=== PATIENT | female | born 1990 | race Hispanic/Latino ===

== ENCOUNTER 2018-01-26 15:08 | Observation (INO) | payer MEDICAID, OTHER ==
[~2018-01-26] VITALS: Ht 149.9 cm; Wt 58.3 kg
[2018-01-26] MEDS ORDERED: IPRATROPIUM/ALBUTEROL SULFATE 3 ML SOLUTION IH ONE ×2 (15:22→15:31)
[2018-01-26] MEDS ORDERED: ACETAMINOPHEN 325 MG TAB ONE (15:32)
[2018-01-26] MEDS ORDERED: METHYLPREDNISOLONE SOD SUCC 125MG/2ML VIAL ONE (15:32)
[2018-01-26] MEDS ORDERED: SODIUM CHLORIDE 0.9% 1000ML 1,000 ML IV ONE (15:32)
[2018-01-26 15:38] LABS: BASOPHILS % (AUTO) 0.2 % (0.0-5.0); EOSINOPHILS % (AUTO) 0.9 % (0.0-8.0); HEMATOCRIT 41.7 % (36-48); LYMPHOCYTES % (AUTO) 6.6 % (21.0-51.0); MEAN CORPUSCULAR VOLUME 91.4 fL (79-99); MONOCYTES % (AUTO) 5.9 % (3.0-13.0); NEUTROPHILS % (AUTO) 86.4 % (40.0-77.0); PLATELET COUNT (AUTO) 271 K/uL (130-400); RED BLOOD CELL COUNT(AUTO) 4.56 MIL/uL (4.00-5.50); RED CELL DISTRIBUTION WIDTH 13.5 % (11.0-15.5); WHITE BLOOD COUNT (AUTO) 16.3 K/uL (4.8-10.8)
[2018-01-26 15:42] LABS: APPEARANCE,URINE Clear (CLEAR); BILIRUBIN,URINE Negative (NEGATIVE); COLOR,URINE Yellow (YELLOW); GLUCOSE, URINE (UA) Negative (NEGATIVE); KETONES,URINE Negative (NEGATIVE); LEUKOCYTE ESTERASE ,URINE Negative (NEGATIVE); NITRATE,URINE Negative (NEGATIVE); OCCULT BLOOD,URINE Moderate (NEGATIVE); PH,URINE 7.5 (5.0-8.0); PROTEIN,URINE Negative (NEGATIVE)
[2018-01-26 15:45] LABS: RAPID GROUP A STREP NEGATIVE (NEGATIVE)
[2018-01-26 15:50] LABS: CREATININE 0.5 mg/dL (0.5-1.5); POTASSIUM 3.6 mmol/L (3.5-5.1)
[2018-01-26 15:51] LABS: HCG,QUAL RESULT NEGATIVE (NEGATIVE)
[2018-01-26 15:54] LABS: ALBUMIN 4.1 g/dL (3.5-5.0); BILIRUBIN,DIRECT 0.2 mg/dL (0.0-0.3); BILIRUBIN,TOTAL 0.7 mg/dL (0.2-1.0); TOTAL PROTEIN, SERUM 8.5 g/dL (6.0-8.3)
[2018-01-26] MEDS ORDERED: SODIUM CHLORIDE 0.9% 1000ML 2,000 ML IV ONE (16:40)
[2018-01-26] MEDS ORDERED: AZITHROMYCIN 500MG+NS 250ML 250 ML IV ONE (16:40)
[2018-01-26] MEDS ORDERED: CEFTRIAXONE SODIUM 1 GM ONE (16:40)
[2018-01-26 17:03] LABS: BACTERIA,URINE Rare /HPF (None Seen); SQUAMOUS EPITHELIAL CELL,UR Few /LPF (0-2); WBC,URINE 0-1 /HPF (0-1)
[2018-01-26 20:15] VITALS: BP 111/66
[2018-01-26] MEDS ORDERED: ACETAMINOPHEN 325 MG TAB PO PRN (21:15)
[2018-01-26] MEDS ORDERED: ONDANSETRON HCL MDV 20ML 2 MG/ML VIAL IVP PRN (21:15)
[2018-01-26] MEDS: SODIUM CHLORIDE 0.9% 1000ML 1,000 ML IV SCH (21:47)
[2018-01-26] MEDS: METHYLPREDNISOLONE SOD SUCC 125MG/2ML VIAL IVP SCH (21:47)
[2018-01-27] VITALS: BP 113/69
[2018-01-27] MEDS: IPRATROPIUM/ALBUTEROL SULFATE 3 ML SOLUTION IH SCH ×3 (01:16→11:34)
[2018-01-27 04:00] VITALS: BP 109/65
[2018-01-27] MEDS: SODIUM CHLORIDE 0.9% 1000ML 1,000 ML IV SCH (04:34)
[2018-01-27 05:32] LABS: HEMATOCRIT 37.4 % (36-48); MEAN CORPUSCULAR HEMOGLOBIN 32.7 pg (27.0-33.0); MEAN CORPUSCULAR HGB CONC 35.1 g/dL (32.0-36.0); MEAN CORPUSCULAR VOLUME 93.1 fL (79-99); PLATELET COUNT (AUTO) 253 K/uL (130-400); RED BLOOD CELL COUNT(AUTO) 4.02 MIL/uL (4.00-5.50); RED CELL DISTRIBUTION WIDTH 13.4 % (11.0-15.5); WHITE BLOOD COUNT (AUTO) 9.9 K/uL (4.8-10.8)
[2018-01-27] MEDS: METHYLPREDNISOLONE SOD SUCC 125MG/2ML VIAL IVP SCH ×2 (06:20→15:09)
[2018-01-27 08:00] VITALS: BP 101/60
[2018-01-27] MEDS ORDERED: AZITHROMYCIN 500MG+NS 250ML 250 ML IV SCH (09:00)
[2018-01-27 12:00] VITALS: BP 117/73
[2018-01-27 16:00] VITALS: BP 115/72
[2018-01-27] MEDS ORDERED: CEFTRIAXONE SODIUM 1 GM IVP SCH (16:00)
== END 2018-01-27 16:50 | disposition home or self-care (01) ==
LOC: EDH 15:08 → EDHIP 15:09 → 4BH 20:30
PROVIDERS: ADMIT Internal Medicine; ATTEND Internal Medicine
DX: J18.9 Pneumonia, unspecified organism (principal); J45.901 Unspecified asthma with (acute) exacerbation
CPT/HCPCS: 36415 ×2; 71046; 80048; 80076; 81001; 81003; 81025; 83605; 85025; 85027; 86738; 87040 ×2; 87449; 87633; 87804 ×2; 87880; 94640 ×5; 94664; 96361 ×2; 96365; 96366; 96375 ×2; 96376; 99285; A4218; G0378 ×26; J0456 ×2; J0696 ×2; J2930 ×4; J7030 ×4

== ENCOUNTER 2021-05-28 12:09 | Emergency (ER) | payer OTHER ==
[~2021-05-28] VITALS: Ht 149.9 cm; Wt 59.0 kg
[2021-05-28 12:10] VITALS: BP 117/80
[2021-05-28 12:50] LABS: MEAN CORPUSCULAR HEMOGLOBIN 33.2 pg (27.0-33.0); MEAN CORPUSCULAR HGB CONC 35.7 g/dL (32.0-36.0); MEAN CORPUSCULAR VOLUME 92.9 fL (79-99); PLATELET COUNT (AUTO) 256 K/uL (130-400); RED BLOOD CELL COUNT(AUTO) 4.52 MIL/uL (4.00-5.50); RED CELL DISTRIBUTION WIDTH 12.1 % (11.0-15.5)
[2021-05-28] MEDS ORDERED: IPRATROPIUM/ALBUTEROL SULFATE 3 ML SOLUTION IH ONE (12:56)
[2021-05-28] MEDS ORDERED: SOLU-MEDROL 125MG VIAL IVP ONE (13:00)
[2021-05-28] MEDS ORDERED: IPRATROPIUM/ALBUTEROL SULFATE 3 ML SOLUTION IH PRN (13:00)
[2021-05-28 13:02] LABS: CREATININE 0.6 mg/dL (0.5-1.5); POTASSIUM 4.1 mmol/L (3.5-5.1)
[2021-05-28 13:07] LABS: ALBUMIN 4.1 g/dL (3.5-5.0); BILIRUBIN,TOTAL 0.5 mg/dL (0.2-1.0); TOTAL PROTEIN, SERUM 8.7 g/dL (6.0-8.3)
[2021-05-28 13:14] LABS: BASOPHILS % (MANUAL) 1 % (0-2); EOSINOPHILS % (MANUAL) 1 % (1-6); MAN.DIFF COMMENT-IMPRESSION MANUAL DIFFERENTIAL; MONOCYTES % (MANUAL) 3 % (2-9); PLATELET MORPHOLOGY COMMENT ADEQUATE; SEGMENTED NEUTROPHILS % 95 % (40-70)
[2021-05-28] MEDS ORDERED: MAGNESIUM 2GM PREMIX 50ML 50 ML IV SCH (15:30)
[2021-05-28] MEDS: 0.9%NACL 1000ML 1,000 ML IV SCH ×2 (16:00→16:23)
[2021-05-28] MEDS ORDERED: AUD IH (17:45)
[2021-05-28] MEDS ORDERED: ALBU90AE2 IH (17:45)
[2021-05-28] MEDS ORDERED: PRED20TA3 PO (17:45)
[2021-05-28 18:11] VITALS: BP 111/66
== END 2021-05-28 18:13 | disposition home or self-care (01) ==
LOC: EDH 12:09
DX: J45.901 Unspecified asthma with (acute) exacerbation (principal); Z20.822 Contact with and (suspected) exposure to COVID-19
CPT/HCPCS: 36415; 71045; 80053; 81025; 83605; 85025; 87040 ×2; 87635; 87804 ×2; 87880; 94640 ×2; 96365; 99284; C9803; J2930; J3475

== ENCOUNTER 2025-06-15 22:47 | Inpatient (IN) | payer SELFPAY ==
[~2025-06-15] VITALS: Ht 149.9 cm; Wt 57.5 kg
[~2025-06-15 22:47] MED LIST: ALBU90AE3 IH; AUD IH; PRED20TA3 PO
[2025-06-15 23:10] LABS: NUCLEATED RED BLOOD CELLS 0.0 % (0.0-0.19); PLATELET COUNT (AUTO) 299 K/uL (130-400); RED BLOOD CELL COUNT(AUTO) 4.76 MIL/uL (4.00-5.50); RED CELL DISTRIBUTION WIDTH 12.3 % (11.0-15.5); WHITE BLOOD COUNT (AUTO) 15.2 K/uL (4.8-10.8)
[2025-06-15 23:16] LABS: IMMATURE GRANULOCYTE ABSOLUTE 0.06 K/uL (0-1)
[2025-06-15] MEDS: BUDESONIDE 0.5 MG/2 ML INH IH ONE ×2 (23:16→23:35)
[2025-06-15 23:24] VITALS: PULSE 111; RESP 20; O2SAT 98
[2025-06-15 23:24] LABS: CREATININE 0.6 mg/dL (0.5-1.0); GLOMERULAR FILTR. RATE CALC 121.0 mL/min (>90); GLUCOSE,RANDOM 126.0 mg/dL (70-105); SODIUM SERUM 137.0 mmol/L (136-145); UREA NITROGEN, BLOOD 5.0 mg/dL (7-18)
[2025-06-15 23:29] LABS: ASPARTATE AMINOTRANSFERASE 23.0 U/L (10-37); TOTAL PROTEIN, SERUM 9.4 g/dL (6.0-8.3)
[2025-06-16] VITALS (14 sets, daily range): BP systolic 99–113; BP diastolic 51–69; PULSE 78–124; RESP 16–22; TEMP 97.6–98.1; O2SAT 95–99
[2025-06-16] LABS: CREATININE 0.7 mg/dL (0.5-1.0); GLOMERULAR FILTR. RATE CALC 117.0 mL/min (>90); GLUCOSE,RANDOM 134.0 mg/dL (70-105); SODIUM SERUM 136.0 mmol/L (136-145); UREA NITROGEN, BLOOD 5.0 mg/dL (7-18)
--- NOTE | 2025-06-16 00:21 | ERN ---
General Chief Complaint: Adult-Asthma Stated Complaint: FEVER, SOB, CHEST TIGHTNESS Time Seen by MD: 22:51 Source: patient History of Present Illness Initial Comments Patient is a 35-year-old female with a history of asthma. She often comes to the emergency room after she runs out of medications. She does not have a primary care physician. Today she comes in with wheezing and shortness of breath. Allergies: Coded Allergies: No Known Drug Allergies (Verified Allergy, 11/25/12) Home Meds Active Scripts Albuterol Sulfate (Albuterol Sulfate) 2.5 Mg/0.5 Ml Vial.neb, 2.5 MG IH TID for asthma for 30 Days, #120 INH Prov:PRAKASH AVILES NP 05/28/21 Prednisone (Prednisone) 20 Mg Tablet, 20 MG PO DAILY for asthma for 7 Days, #7 TAB Prov:PRAKASH AVILES NP 05/28/21 Albuterol Sulfate (Proair Digihaler) 90 Mcg Aer.pw.bas, 90 MCG IH TID for sob for 30 Days, #1 INH.KIT Prov:PRAKASH AVILES NP 05/28/21 Past Medical History Past Medical History: Asthma Past Surgical History: None, Female( History) LMP: Jun 15, 2025 Constitutional: (-) chills, (-) diaphoresis, (-) fever, (-) malaise, (-) weakness, (-) other documentation EENTM: (-) eye pain, (-) blurred vision, (-) tearing, (-) double vision, (-) ear pain, (-) ear discharge, (-) nose pain, (-) nose congestion, (-) throat pain, (-) Throat swelling, (-) mouth pain, (-) tooth pain, (-) mouth swelling, (-) other documentation Respiratory: (+) cough, (+) stridor, (+) wheezing Cardiovascular: (-) chest pain, (-) edema, (-) palpitations, (-) syncope, (-) dyspnea on exertion, (-) other documentation Gastrointestinal/Abdominal: (-) nausea, (-) vomiting, (-) diarrhea, (-) abdominal pain, (-) abdominal distention, (-) constipation, (-) rectal bleeding, (-) dark stool/melena, (-) other documentation Genitourinary: (-) vaginal discharge, (-) vaginal bleeding, (-) dysuria, (-) frequency, (-) hematuria, (-) pain, (-) other documentation Musculoskeletal: (-) Neck pain, (-) back pain, (-) Flank Pain, (-) joint pain, (-) joint swelling, (-) muscle pain, (-) muscle stiffness, (-) gout, (-) other documentation Physical Exam General Appearance: (+) mild distress Orientation: (+) alert, (+) oriented x 3 Head/Face Trauma: No Eye: bilateral eye normal inspection, bilateral eye PERRL, bilateral eye EOMI Ear, Nose, Throat: (+) hearing grossly normal, (+) normal ENT inspection, (+) moist mucous membraine, (+) normal pharynx Neck: (+) normal inspection, (+) supple, (+) full range of motion Respiratory: (+) chest non-tender, (+) decreased breath sounds, (+) abnormal breath sound, (+) rhonchi, (+) stridor, (+) wheezing Heart: (+) regular, (+) tachycardia Vascular: (+) no edema, (+) normal peripheral pulse Gastrointestinal: (+) soft, (+) non-tender, (+) bowel sound present Results Laboratory and Microbiology Lab and Micro Result Laboratory Tests Test 06/15/25 23:01 06/15/25 23:44 06/16/25 00:31 White Blood Count 15.2 K/uL (4.8-10.8) H Red Blood Count 4.76 MIL/uL (4.00-5.50) Hemoglobin 15.7 g/dL (12.0-16.0) Hematocrit 44.7 % (36-48) Mean Corpuscular Volume 93.9 fL (79-99) Mean Corpuscular Hemoglobin 33.0 pg (27.0-33.0) Mean Corpuscular Hemoglobin Concent 35.1 g/dL (32.0-36.0) Red Cell Distribution Width 12.3 % (11.0-15.5) Platelet Count 299 K/uL (130-400) Mean Platelet Volume 10.3 fL (7.5-10.5) Immature Granulocyte % (Auto) 0.4 % (0-1) Neutrophils (%) (Auto) 89.5 % (40.0-77.0) H Lymphocytes (%) (Auto) 3.9 % (21.0-51.0) L Monocytes (%) (Auto) 4.2 % (3.0-13.0) Eosinophils (%) (Auto) 1.7 % (0.0-8.0) Basophils (%) (Auto) 0.3 % (0.0-5.0) Neutrophils # (Auto) 13.1 K/uL (1.8-7.7) H Lymphocytes # (Auto) 0.6 K/uL (1.0-4.8) L Monocytes # (Auto) 0.6 K/uL (0.1-1.0) Eosinophils # (Auto) 0.25 K/uL (0.00-0.70) Basophils # (Auto) 0.05 K/uL (0.00-0.20) Absolute Immature Granulocyte (auto 0.06 K/uL (0-1) Nucleated Red Blood Cells 0.0 % (0.0-0.19) White Cell Morphology Comment See comments Sodium Level 137 mmol/L (136-145) 136 mmol/L (136-145) Potassium Level 3.8 mmol/L (3.5-5.1) 3.7 mmol/L (3.5-5.1) Chloride Level 101 mmol/L (101-111) 102 mmol/L (101-111) Carbon Dioxide Level 25 mmol/L (21-32) 25 mmol/L (21-32) Blood Urea Nitrogen 5 mg/dL (7-18) L 5 mg/dL (7-18) L Creatinine 0.6 mg/dL (0.5-1.0) 0.7 mg/dL (0.5-1.0) Glomerular Filtration Rate Calc 121 mL/min (>90) 117 mL/min (>90) Random Glucose 126 mg/dL (70-105) H 134 mg/dL (70-105) H Total Calcium 9.0 mg/dL (8.5-10.1) 9.1 mg/dL (8.5-10.1) Total Bilirubin 0.7 mg/dL (0.2-1.0) Aspartate Amino Transf (AST/SGOT) 23 U/L (10-37) Alanine Aminotransferase (ALT/SGPT) 28 U/L (12-78) Alkaline Phosphatase 79 U/L (50-136) Total Protein 9.4 g/dL (6.0-8.3) H Albumin 4.5 g/dL (3.5-5.0) Urine Color YELLOW (YELLOW) Urine Appearance CLOUDY (CLEAR) H Urine pH 6.0 (5.0-8.0) Urine Specific [place] 1.026 (1.001-1.031) Urine Protein 30 mg/dL (NEGATIVE) H Urine Glucose (UA) NEGATIVE mg/dL (NEGATIVE) Urine Ketones 40 mg/dL (NEGATIVE) H Urine Occult Blood LARGE (NEGATIVE) H Urine Nitrate NEGATIVE (NEGATIVE) Urine Bilirubin NEGATIVE mg/dL (NEGATIVE) Urine Urobilinogen 3 mg/dL (0.2-1.0) H Urine Leukocyte Esterase 25 Jung/uL (NEGATIVE) H Urine RBC TNTC /HPF (0-1) H Urine WBC 26-50 /HPF (0-1) H Urine Squamous Epithelial Cells MANY /HPF (0-2) Urine Bacteria RARE /HPF (None Seen) Urine HCG, Qualitative NEGATIVE (NEGATIVE) MDM MDM: Differential diagnosis: Recurrent asthma, viral infection, pneumonia, allergies. Rationale: Tests considered and ordered secondary to shared decision making include: Previous outside records reviewed: Old ER visits. Risk of complication and/or morbidity or mortality of patient management: None Medications-Per medication reconciliation Need for hospitalization: Patient does meet criteria for hospitalization. Need for emergency major/minor surgery: No There are no social concerns with this patient. Prescription drug management Prescriptions will include symptomatic care Patient's prior external medical records from other ER visits were reviewed by me as indicated. Prior testing and results from previous visits were reviewed. Prior tests were taken into account with medical decision making and resource utilization, independent historian/historians were used to obtain complete medical history. I independently interpreted the test that were performed, results were reviewed by me and considered findings on radiology if ordered. Patient's asthma improved a little bit but she still had some wheezing especially on the right and so I have written for a 2nd round of DuoNeb therapy. Her urine is positive for mild esterase activity. She does have blood in her urine but she is having her menses. Her white blood cell count is 15 with a left shift. Chest x-ray is normal nasal swabs are pending for viral and strep. I have discussed the patient with the hospitalist service they will admit her. ED Course Orders Procedure Category Date Status Time Comprehensive LAB 06/15/25 Complete Metabolic Panel 23:03 Ipratropium/Albuterol PHA 06/15/25 Complete Neb (Duoneb) 23:30 Budesonide 0.5 Mg/2 PHA 06/16/25 In Process Ml Inh (Pulmicort 0. 06:00 Cbc With Differential LAB 06/15/25 Complete 23:01 Budesonide 0.5 Mg/2 PHA 06/15/25 Complete Ml Inh (Pulmicort 0. 23:14 Chest 1vw RAD 06/15/25 Taken 23:29 ,Urine Test LAB 06/15/25 Complete 23:29 Urinalysis Profile LAB 06/15/25 Complete 23:29 Basic Metabolic Panel LAB 06/15/25 Complete 23:29 Covid19 (Sars Antigen LAB 06/16/25 Logged Rapid) 00:21 Influenza Type A & B, LAB 06/16/25 Logged Rapid 00:21 Rapid (Group A Strep) LAB 06/16/25 Logged 00:21 Ipratropium/Albuterol PHA 06/16/25 Complete Neb (Duoneb) 01:00 Culture Urine ANDREAS 06/16/25 In Process 01:02 Current Medications Medications (Trade) Dose Ordered Sig/Lizet Route PRN Reason Start Time Stop Time Status Last Admin Dose Admin Albuterol (DUOneb) 1 UDVIAL ONCE ONCE IH 06/15/25 23:30 06/15/25 23:31 DC 06/15/25 23:15 Albuterol (DUOneb) 1 UDVIAL ONCE ONCE IH 06/16/25 01:00 06/16/25 01:01 DC Budesonide (Pulmicort 0.5 Mg/2ml) 0.5 mg BIDRESP ONCE IH 06/16/25 06:00 06/16/25 06:01 06/15/25 23:16 Budesonide (Pulmicort 0.5 Mg/2ml) 0.5 mg STK-MED ONCE IH 06/15/25 23:14 06/15/25 23:15 DC Vital Signs Date Time Temp Pulse Resp B/P (MAP) Pulse Ox O2 Delivery O2 Flow Rate FiO2 06/15/25 23:24 111 20 06/15/25 23:24 111 20 Nasal Cannula 2.0 06/15/25 23:16 98.8 117 26 122/75 98 Nasal Cannula* 2 06/15/25 22:49 99.7 116 26 116/80 92 Room Air DX & DISP Disposition: Inpatient Departure Impression: Primary Impression: Acute asthma exacerbation Condition: Stable Referrals: MARYANA LIVE (PCP) TARYN SOTO MD Jun 16, 2025 00:21
[2025-06-16 00:58] LABS: APPEARANCE,URINE CLOUDY (CLEAR); GLUCOSE, URINE (UA) NEGATIVE (NEGATIVE); LEUKOCYTE ESTERASE ,URINE 25 Leu/uL (NEGATIVE); NITRATE,URINE NEGATIVE (NEGATIVE); OCCULT BLOOD,URINE LARGE (NEGATIVE)
[2025-06-16 00:59] LABS: ADD UA MICROSCOPIC YES
[2025-06-16 01:00] LABS: HCG,QUALITATIVE URINE NEGATIVE (NEGATIVE)
[2025-06-16 01:02] LABS: SQUAMOUS EPITHELIAL CELL,UR MANY /HPF (0-2)
--- NOTE | 2025-06-16 01:09 | HP ---
History of Present Illness Reason for Visit: sob History of Present Illness Ms. Dubois Is a 35-year-old female that was seen and examined today on 06/16/2025. Patient is a good historian of personal health Patient reports that she came to the emergency department with a chief complaint of shortness of breath. Onset was last Monday. Duration is on and off. Character is described as, "like tightness and I can not catch my breath. "Symptoms are not alleviated with rescue inhaler, albuterol. Symptoms are aggravated with physical activity. Patient reports associated cough. She only uses a rescue inhaler because she currently does not have health insurance but it we will be starting next month. Today in the emergency department WBCs 15.2, left shift neutrophils 89.5%, urinalysis positive for leukocyte esterase and WBCs 20 6-50 per high-powered microscopy field. Emergency room physician recommended that patient be admitted with a diagnosis of asthma exacerbation. Past Medical History Patient History: Cancer MOTHER, Onset:40's - 50 (BREAST CANCER) Carcinomas MOTHER Diabetes mellitus FATHER Family history: Diabetes mellitus FATHER, Onset:30's - 40 No Family History of: Alzheimer's disease Asthma Cardiovascular disease Chronic obstructive lung disease Chronic obstructive pulmonary disease Completed stroke Family history: Alzheimer's disease Family history: Asthma Family history: Cardiovascular disease Family history: Hypertension Hypertension Immunocompromised state Parkinson's disease Stroke Sudden Sudden ADDITIONAL PAST MEDICAL HISTORY: [Asthma] SOCIAL HISTORY: [Negative for smoking. Patient drinks alcohol once a week usually 3-4 beers that are 12 oz each. Patient denies drug use. Patient lives with the , Aaron Bolanos. Patient typically independent of all her ADLs. Patient denies difficulty paying her bills.] SURGICAL HISTORY: [ x1] Review of Systems General: No Fever, No Chills, No Night Sweats, No Fatigue, No Malaise, No Appetite, No Other HEENT: No Head Aches, No Visual Changes, No Eye Pain, No Ear Pain, No Dysphasia, No Sinus Congestion, No Post Nasal Drip, No Sore Throat, No Other Pulmonary: Dyspnea, Cough; No Pleuritic Chest Pain, No Other Cardiovascular: No: Chest Pain, Palpitations, Orthopnea, Paroxysmal Noc. Dyspnea, Edema, Lt Headedness, Other Gastrointestinal: No: Nausea, Vomiting, Abdominal Pain, Diarrhea, Constipation, Melena, Hematochezia, Other Genitourinary: No Dysuria, No Frequency, No Incontinence, No Hematuria, No Retention, No Other Musculoskeletal: No: other, neck pain, shoulder pain, arm pain, back pain, hand pain, leg pain, foot pain Skin: No Urticaria, No Rash, No Other Neurological: No: Weakness, Numbness, Incoordination, Change in speech, Confusion, Seizures, Other Allergies: Coded Allergies: No Known Drug Allergies (Verified Allergy, 11/25/12) Scheduled Albuterol Sulfate (Proair Digihaler), 90 MCG IH TID Albuterol Sulfate (Albuterol Sulfate), 2.5 MG IH TID Prednisone (Prednisone), 20 MG PO DAILY Exam Vital Signs Vital Signs Date Time Temp Pulse Resp B/P (MAP) Pulse Ox O2 Delivery O2 Flow Rate FiO2 06/16/25 01:08 98.8 112 26 115/70 98 Nasal Cannula* 2 28 General Appearance: Alert, Oriented X3, Cooperative, mild distress HEENT: Atraumatic, EOMI, Mucous membr. moist/pink Respiratory: Other (Positive bilateral wheezing) Cardiovascular: Regular rate, Regular rhythm, Normal S1, Normal S2 Abdominal: Normal bowel sounds, Soft, No tenderness Extremities: No edema Skin: No significant lesion Neuro: Normal speech, Strength at 5/5 X4 ext, Sensation intact, Cranial nerves 3-12 NL Psych/Mental Status: Mental status NL, Mood NL, Thoughts/Content NL Assessment/Plan ASSESSMENT: [ Asthma exacerbation, POA Leukocytosis, POA Urinary tract infection, POA] PLAN: [ Admit patient to medical floor as inpatient status. Place patient on telemetry monitoring. Asthma exacerbation: Reviewed patient's chest x-ray which was unremarkable. DuoNebs every 6 hours. Solu-Medrol 125 mg IV times 1. Solu-Medrol 40 mg IV every 8 hours. Consider discharging patient on prednisone packed. Leukocytosis, urinary tract infection: Start empiric antibiotic therapy with Rocephin. Check urine culture, follow up with the results. Check blood culture, follow up with the results. Check procalcitonin, follow up with the results. Check lactic acid, follow up with the results. GI prophylaxis, famotidine DVT prophylaxis, Lovenox ADVANCED CARE PLANNING 1. Which of the following were discussed? Hospice Care - Yes Therapeutic options - yes Advance Directives - Yes - patient states she does not have any advance directives in place at this time, however her , Aaron can make decisions for her if she becomes unable. Other discussions - patient wishes to remain a full code at this time 2. Discussed with who? Patient 3. Voluntary nature of this service was explained to the patient? Yes 4. Amount of time spent - ___16 minutes____ 5. Reviewed by Physician? (if this service was performed by NPP) Yes This document was generated in part using voice recognition software, occasional wrong word or sound alike substitutions may have occurred due to the inherent limitations of voice recognition software. Read the chart carefully and recognize using context, where the substitutions have occurred. Although every effort was made to edit the content, jigsawyer and typing errors may occur ATTESTATION BY PHYSICIAN I have seen and examined the patient. I reviewed the documentation, medical decision making, and treatment plan as noted by the mid-level provider above. I agree with the findings and plan of care.] LULA AMBRIZ [facility] Jun 16, 2025 01:09
--- NOTE | 2025-06-16 02:03 | HMCIMG ---
EXAM: CR Chest, 1 view CLINICAL HISTORY: Shortness of breath. COMPARISON: Chest radiograph dated 01/26/2018. FINDINGS: The lungs show no infiltrates or other acute findings. No pleural effusion or pneumothorax. The cardiomediastinal silhouette is within normal limits. No acute osseous abnormality. IMPRESSION: No acute cardiopulmonary process is evident. No interval changes. /Rex
[2025-06-16 02:11] LABS: RAPID GROUP A STREP negative (NEGATIVE)
[2025-06-16 02:21] LABS: COVID19 (SARS ANTIGEN RAPID) PRESUMPTIVE NEGATIVE (NEGATIVE); INFLUENZA TYPE A Negative For Type A (NEGATIVE); INFLUENZA TYPE B Negative For Type B (NEGATIVE)
[2025-06-16 04:19] LABS: IMMATURE GRANULOCYTE ABSOLUTE 0.06 K/uL (0-1); NUCLEATED RED BLOOD CELLS 0.0 % (0.0-0.19); PLATELET COUNT (AUTO) 337 K/uL (130-400); RED BLOOD CELL COUNT(AUTO) 4.49 MIL/uL (4.00-5.50); RED CELL DISTRIBUTION WIDTH 12.4 % (11.0-15.5); WHITE BLOOD COUNT (AUTO) 15.8 K/uL (4.8-10.8)
[2025-06-16 04:38] LABS: CREATININE 0.8 mg/dL (0.5-1.0); GLOMERULAR FILTR. RATE CALC 100.0 mL/min (>90); GLUCOSE,RANDOM 152.0 mg/dL (70-105); PHOSPHORUS 3.4 mg/dL (2.5-4.9); SODIUM SERUM 137.0 mmol/L (136-145); UREA NITROGEN, BLOOD 5.0 mg/dL (7-18)
[2025-06-16] MEDS: LACTATED RINGERS IV ONE (06:17)
[2025-06-16] MEDS ORDERED: ZOSYN 3.375GM +NS 50ML IVPB SCH (06:30)
[2025-06-16] MEDS ORDERED: 0.9%NACL 50ML IV SCH (09:00)
[2025-06-16] MEDS: FAMOTIDINE 20MG TAB PO SCH (09:26)
[2025-06-16] MEDS: ZOSYN 3.375GM +NS 50ML IVPB SCH (09:26)
[2025-06-16] MEDS: Solu-medROL 40MG VIAL IVP SCH (09:26)
[2025-06-16] MEDS: ENOXAPARIN SODIUM 40 MG/0.4 ML SYRINGE SQ SCH (09:26)
--- NOTE | 2025-06-16 10:12 | NUR ---
DCP: HOME Sw met with pt who lives in an apt with her 3 kids. Pt has no govt assistance, works a ACT,drives, able to complete ADLS, home management and meal prep for herself and family. Uses no in home care services, DME, HH or HD. Has no PCP. Community resources given Pt denies dc needs and will return home.. Sister Mckayla Dubois [phone] Aaron Gordon [phone] Addendum: 06/16/25 at 1017 by DUNIA GANN SS Amended: Links added.
--- NOTE | 2025-06-16 12:42 | PN ---
[facility] PROGRESS NOTE Date of Service: Jun 16, 2025 Time of Service: 12:41 SUBJECTIVE: Ms. Dubois is a 35-year-old female who came to the emergency department with a chief complaint of shortness of breath. She has associated cough both of which started from last Monday and got exacerbated yesterday night for which she came to the ER. Patient has had previous episodes of asthma exacerbation with hospital admission. She only uses albuterol when she has asthma exacerbation which she said did not help this time. Patient does not have a PCP currently. Patient's lab showed WBC of 15.2, left shift neutrophils 89.5%, urinalysis positive for leukocyte esterase and urine WBCs in the range of 26-50. She was started on Zosyn. Chest x-ray showed no acute cardiopulmonary process. She was also tachycardic with her heart rate in 116. 06/16/25: Patient was evaluated in her room without family present. She was placed on oxygen on 3 L nasal cannula, her pulse has improved and is now in the 80's range. She has become a bit hypotensive with a blood pressure rate at 99/61 so we started her on fluids. She is not short of breath but has a bit of chest tightness still. Her WBC has increased from 15.2-15.8 She also has increased lactic acid at 2.6. Patient's serology came back negative for influenza, COVID and group A strep rapid. A urine culture has been ordered pending results. Patient started on DuoNeb and Pulmicort. Zosyn has been discontinued and she has been placed on Rocephin and doxycycline. A test for peak flow has also been ordered. We will continue the current therapy to see if there is any improvement. REVIEW OF SYSTEMS CONSTITUTIONAL: Chills, denies fevers or night sweats. No unintentional weight loss reported. NEUROLOGICAL: Denies headache, amaurosis fugax, motor weakness, sensory deficit, vertigo/spinning sensation, gait abnormalities, or tremors. ENT: No hearing loss, rhinitis, rhinorrhea, hoarseness, or sore throat. CARDIOVASCULAR: Denies any exertional angina, dyspnea on exertion, orthopnea, paroxysmal nocturnal dyspnea, palpitations. PULMONARY: Shortness of breath, cough, denies phlegm/sputum, hemoptysis, pleuritic chest pain. GASTROINTESTINAL: Denies any type of dysphagia to either liquids or solids. Denies nausea, vomiting, abdominal pain, diarrhea, constipation, or changes in stool consistency or caliber. GENITOURINARY: Denies frequency, urgency, nocturia, hematuria or incontinence ENDOCRINOLOGIC: Denies polyuria, polydipsia, polyphagia or heat/cold intolerances. DERMATOLOGIC: Denies rashes or pruritus. PHYSICAL EXAM GENERAL APPEARANCE: The patient is awake, alert, and oriented, in no acute cardiopulmonary distress. NEUROLOGICAL: Motor is 5/5 in bilateral upper and lower extremities proximal to distal. No sensory deficits. HEENT: Face is symmetric. Pupils are equal and reactive. Extraocular movements are intact. NECK: Supple. No JVD. No lymphadenopathy. CHEST: Normal chest expansion. No Telemetry. LUNGS: Wheezing. Absence of any rales, rhonchi CARDIOVASCULAR: Regular. S1 and S2 normal. No appreciable rubs, murmurs or gallops. ABDOMEN: Soft, nontender, and nondistended. There is no rebound, voluntary guarding, or rigidity. : Deferred. No Gutiérrez. EXTREMITIES: Non-edematous and not cyanotic. No clubbing. Good capillary refill. SKIN: No skin breakdown. Vital Signs (last 8hr) Date Time Temp Pulse Resp B/P (MAP) Pulse Ox O2 Delivery O2 Flow Rate FiO2 06/16/25 11:12 97.5 85 20 99/61 97 Nasal Cannula 2.0 06/16/25 10:56 86 20 06/16/25 10:55 86 18 N/Cannula Low lpm 2.0 06/16/25 09:26 99 Nasal Cannula* 2 06/16/25 08:35 97.7 85 16 107/69 99 Nasal Cannula 2.0 06/16/25 06:41 78 20 06/16/25 06:40 87 18 N/Cannula Low lpm 3.0 32 LABS: Laboratory: Test 06/16/25 03:52 06/16/25 01:43 06/16/25 00:31 06/15/25 23:01 Range/Units White Blood Count 15.8 H 4.8-10.8 K/uL Red Blood Count 4.49 4.00-5.50 MIL/uL Hemoglobin 15.0 12.0-16.0 g/dL Hematocrit 41.9 36-48 % Mean Corpuscular Volume 93.3 79-99 fL Mean Corpuscular Hemoglobin 33.4 H 27.0-33.0 pg Mean Corpuscular Hemoglobin Concent 35.8 32.0-36.0 g/dL Red Cell Distribution Width 12.4 11.0-15.5 % Platelet Count 337 130-400 K/uL Mean Platelet Volume 10.7 H 7.5-10.5 fL Immature Granulocyte % (Auto) 0.4 0-1 % Neutrophils (%) (Auto) 93.5 H 40.0-77.0 % Lymphocytes (%) (Auto) 3.3 L 21.0-51.0 % Monocytes (%) (Auto) 2.3 L 3.0-13.0 % Eosinophils (%) (Auto) 0.3 0.0-8.0 % Basophils (%) (Auto) 0.2 0.0-5.0 % Neutrophils # (Auto) 14.8 H 1.8-7.7 K/uL Lymphocytes # (Auto) 0.5 L 1.0-4.8 K/uL Monocytes # (Auto) 0.4 0.1-1.0 K/uL Eosinophils # (Auto) 0.05 0.00-0.70 K/uL Basophils # (Auto) 0.03 0.00-0.20 K/uL Absolute Immature Granulocyte (auto 0.06 0-1 K/uL Nucleated Red Blood Cells 0.0 0.0-0.19 % Sodium Level 137 136-145 mmol/L Potassium Level 3.9 3.5-5.1 mmol/L Chloride Level 101 101-111 mmol/L Carbon Dioxide Level 24 21-32 mmol/L Blood Urea Nitrogen 5 L 7-18 mg/dL Creatinine 0.8 0.5-1.0 mg/dL Glomerular Filtration Rate Calc 100 >90 mL/min Random Glucose 152 H 70-105 mg/dL Lactic Acid Level 2.6 H 0.8-2.5 mmol/L Total Calcium 9.3 8.5-10.1 mg/dL Phosphorus Level 3.4 2.5-4.9 mg/dL Magnesium Level 1.80 1.80-2.40 mg/dL C-Reactive Protein, Quantitative 56.30 H 0.5-3.0 mg/L Procalcitonin < 0.05 L 0.05-0.5 ng/mL Influenza Type A Antigen Negative For Type A NEGATIVE Influenza Type B Antigen Negative For Type B NEGATIVE SARS-CoV-2 Antigen (Rapid) PRESUMPTIVE NEGATIVE NEGATIVE Group A Streptococcus Rapid negative NEGATIVE Urine Color YELLOW YELLOW Urine Appearance CLOUDY H CLEAR Urine pH 6.0 5.0-8.0 Urine Specific [place] 1.026 1.001-1.031 Urine Protein 30 H NEGATIVE mg/dL Urine Glucose (UA) NEGATIVE NEGATIVE mg/dL Urine Ketones 40 H NEGATIVE mg/dL Urine Occult Blood LARGE H NEGATIVE Urine Nitrate NEGATIVE NEGATIVE Urine Bilirubin NEGATIVE NEGATIVE mg/dL Urine Urobilinogen 3 H 0.2-1.0 mg/dL Urine Leukocyte Esterase 25 H NEGATIVE Jung/uL Urine RBC TNTC H 0-1 /HPF Urine WBC 26-50 H 0-1 /HPF Urine Squamous Epithelial Cells MANY 0-2 /HPF Urine Bacteria RARE None Seen /HPF Urine HCG, Qualitative NEGATIVE NEGATIVE White Cell Morphology Comment See comments Total Bilirubin 0.7 0.2-1.0 mg/dL Aspartate Amino Transf (AST/SGOT) 23 10-37 U/L Alanine Aminotransferase (ALT/SGPT) 28 12-78 U/L Alkaline Phosphatase 79 50-136 U/L Total Protein 9.4 H 6.0-8.3 g/dL Albumin 4.5 3.5-5.0 g/dL Current Medications Medications (Trade) Dose Ordered Sig/Lizet Route PRN Reason Start Time Stop Time Status Last Admin Dose Admin Acetaminophen (TYLenol 325MG TAB) 650 mg Q6H PRN PO TEMPERATURE GREATER THAN 101.5 06/16/25 01:30 07/16/25 01:29 Albuterol (DUOneb) 1 UDVIAL [id number] IH 06/16/25 06:00 07/16/25 05:59 06/16/25 10:55 1 UDVIAL Ceftriaxone Sodium (ROCEphine 1G INJ) 1 gm Q24H IVPB 06/16/25 01:30 06/16/25 06:05 DC 06/16/25 01:39 1 GM Enoxaparin Sodium (Lovenox) 40 mg DAILY SQ 06/16/25 09:00 07/16/25 08:59 06/16/25 09:26 40 MG Famotidine (Pepcid 20mg Tab) 20 mg DAILY PO 06/16/25 09:00 07/16/25 08:59 06/16/25 09:26 20 MG Guaifenesin (RobiTUSSin SUGAR-FREE 100 MG/ 5 ML UDCUP) 400 mg Q4H PRN PO cough 06/16/25 01:30 07/16/25 01:29 Hydralazine HCl (APRESOLine 20MG INJ) 10 mg Q6H PRN IV For:SBP above 160;DBP above 90 06/16/25 01:30 07/16/25 01:29 Methylprednisolone Sodium Succinate (Solu-medROL 40MG) 40 mg Q8H IVP 06/16/25 08:30 07/16/25 08:29 06/16/25 09:26 40 MG Morphine Sulfate (morPHINE 2MG SYG) 2 mg Q4H PRN IVP SEVERE PAIN (7-10) 06/16/25 01:30 06/23/25 01:29 Ondansetron HCl (zoFRAN 4MG INJ) 4 mg Q6H PRN IV NAUSEA/VOMITING 06/16/25 01:30 07/16/25 01:29 Piperacillin Sod/ Tazobactam Sod (Zosyn 3.375gm+NS 50ml) 3.375 gm Q8H IVPB 06/16/25 06:30 06/16/25 07:16 DC Piperacillin Sod/ Tazobactam Sod (Zosyn 3.375gm+NS 50ml) 3.375 gm Q8H IVPB 06/16/25 08:30 06/26/25 08:29 06/16/25 09:26 3.375 GM Sodium Chloride (NS 50ml) 50 ml AD IV 06/16/25 09:00 06/16/25 06:06 DC DIAGNOSTICS / RADIOLOGY: [ ] ASSESSMENT: Asthma exacerbation, POA Leukocytosis, POA Urinary tract infection, POA Possible community acquired pneumonia, POA PLAN: Asthma exacerbation, POA * And placenta with shortness of breath, tachycardia * Patient albuterol did not help * Patient started on DuoNeb and Pulmicort * Patient also on 3 L nasal Urinary tract infection, POA * Patient's urine positive for leukocyte esterase and WBC in the range of 25-60 * Urine culture ordered * Patient started on Rocephin and doxycycline Leukocytosis, POA * Presented with a WBC count of 15.2 Which has now increased to 15.8 * Underlying infection can be a cause or the use of steroids * Patient started on antibiotics while waiting for culture results Possible community acquired pneumonia, POA * Patient presents with presented with cough, chills * Patient's chest x-ray showed no acute abnormality * Patient started on Rocephin and doxycycline ATTESTATION BY PHYSICIAN I have seen and examined the patient. I reviewed the documentation, medical decision making, and treatment plan as noted by the resident provider above. I agree with the findings and plan of care. Fernando Wise MD, ABHINAV MD Jun 16, 2025 12:42
[2025-06-16] MEDS: DOXYCYCLINE 100MG+NS 250ML 250 ML IV SCH (14:06)
[2025-06-16] MEDS: 0.9%NACL 1000ML 1,000 ML IV SCH (18:49)
[2025-06-16] MEDS: BUDESONIDE 0.5 MG/2 ML INH IH SCH (18:52)
[2025-06-17] VITALS (13 sets, daily range): BP systolic 97–128; BP diastolic 60–84; PULSE 79–98; RESP 18–20; TEMP 97.6–98.1; O2SAT 95–100
[2025-06-17 04:58] LABS: IMMATURE GRANULOCYTE ABSOLUTE 0.10 K/uL (0-1); NUCLEATED RED BLOOD CELLS 0.0 % (0.0-0.19); PLATELET COUNT (AUTO) 292 K/uL (130-400); RED BLOOD CELL COUNT(AUTO) 4.15 MIL/uL (4.00-5.50); RED CELL DISTRIBUTION WIDTH 12.7 % (11.0-15.5); WHITE BLOOD COUNT (AUTO) 17.5 K/uL (4.8-10.8)
[2025-06-17 05:18] LABS: ASPARTATE AMINOTRANSFERASE 21.0 U/L (10-37); CREATININE 0.4 mg/dL (0.5-1.0); GLOMERULAR FILTR. RATE CALC 134.0 mL/min (>90); GLUCOSE,RANDOM 140.0 mg/dL (70-105); SODIUM SERUM 141.0 mmol/L (136-145); TOTAL PROTEIN, SERUM 7.4 g/dL (6.0-8.3); UREA NITROGEN, BLOOD 13.0 mg/dL (7-18)
[2025-06-17] MEDS ORDERED: BENZONATATE 100 MG CAPSULE PO PRN (13:00)
--- NOTE | 2025-06-17 14:33 | PN ---
[facility] PROGRESS NOTE Date of Service: Jun 17, 2025 Time of Service: 14:29 SUBJECTIVE: Ms. Dubois is a 35-year-old female who came to the emergency department with a chief complaint of shortness of breath. She has associated cough both of which started from last Monday and got exacerbated yesterday night for which she came to the ER. Patient has had previous episodes of asthma exacerbation with hospital admission. She only uses albuterol when she has asthma exacerbation which she said did not help this time. Patient does not have a PCP currently. Patient's lab showed WBC of 15.2, left shift neutrophils 89.5%, urinalysis positive for leukocyte esterase and urine WBCs in the range of 26-50. She was started on Zosyn. Chest x-ray showed no acute cardiopulmonary process. She was also tachycardic with her heart rate in 116. 06/16/25: Patient was evaluated in her room without family present. She was placed on oxygen on 3 L nasal cannula, her pulse has improved and is now in the 80's range. She has become a bit hypotensive with a blood pressure rate at 99/61 so we started her on fluids. She is not short of breath but has a bit of chest tightness still. Her WBC has increased from 15.2-15.8 She also has increased lactic acid at 2.6. Patient's serology came back negative for influenza, COVID and group A strep rapid. A urine culture has been ordered pending results. Patient started on DuoNeb and Pulmicort. Zosyn has been discontinued and she has been placed on Rocephin and doxycycline. A test for peak flow has also been ordered. We will continue the current therapy to see if there is any improvement. 06/17/25: Patient was evaluated in her room with family present. Patient is started on DuoNeb and Pulmicort. Patient started on normal saline which seems to have helped with her blood pressure. Today in the morning the blood pressure was 110/65. The patient has cough and shortness of breath when she walks a short distance. We tried to wean the patient off of nasal cannula but she still becomes short of breath so she is still on nasal cannula on 2L oxygen. The test for peak flow gave us a result of 150 mL. She said her chest tightness has improved but still has shortness of breath so we have consulted pulmonology for further recommendations. REVIEW OF SYSTEMS CONSTITUTIONAL: Chills, denies fevers or night sweats. No unintentional weight loss reported. NEUROLOGICAL: Denies headache, amaurosis fugax, motor weakness, sensory deficit, vertigo/spinning sensation, gait abnormalities, or tremors. ENT: No hearing loss, rhinitis, rhinorrhea, hoarseness, or sore throat. CARDIOVASCULAR: Denies any exertional angina, dyspnea on exertion, orthopnea, paroxysmal nocturnal dyspnea, palpitations. PULMONARY: Shortness of breath, cough, denies phlegm/sputum, hemoptysis, pleuritic chest pain. GASTROINTESTINAL: Denies any type of dysphagia to either liquids or solids. De nies nausea, vomiting, abdominal pain, diarrhea, constipation, or changes in stool consistency or caliber. GENITOURINARY: Denies frequency, urgency, nocturia, hematuria or incontinence ENDOCRINOLOGIC: Denies polyuria, polydipsia, polyphagia or heat/cold intolerances. DERMATOLOGIC: Denies rashes or pruritus. PHYSICAL EXAM GENERAL APPEARANCE: The patient is awake, alert, and oriented, in no acute cardiopulmonary distress. NEUROLOGICAL: Motor is 5/5 in bilateral upper and lower extremities proximal to distal. No sensory deficits. HEENT: Face is symmetric. Pupils are equal and reactive. Extraocular movements are intact. NECK: Supple. No JVD. No lymphadenopathy. CHEST: Normal chest expansion. No Telemetry. LUNGS: Wheezing. Absence of any rales, rhonchi CARDIOVASCULAR: Regular. S1 and S2 normal. No appreciable rubs, murmurs or gallops. ABDOMEN: Soft, nontender, and nondistended. There is no rebound, voluntary guarding, or rigidity. : Deferred. No Gutiérrez. EXTREMITIES: Non-edematous and not cyanotic. No clubbing. Good capillary refill. SKIN: No skin breakdown. Vital Signs (last 8hr) Date Time Temp Pulse Resp B/P (MAP) Pulse Ox O2 Delivery O2 Flow Rate FiO2 06/17/25 11:20 97.9 80 20 97/60 97 Nasal Cannula 2.0 06/17/25 11:01 90 20 06/17/25 08:48 95 Nasal Cannula* 2 28 06/17/25 08:20 98.1 95 18 110/65 95 Room Air 06/17/25 06:51 92 19 N/Cannula Low lpm 2.0 28 LABS: Laboratory: Test 06/17/25 04:46 06/16/25 03:52 06/16/25 01:43 06/16/25 00:31 Range/Units White Blood Count 17.5 H 4.8-10.8 K/uL Red Blood Count 4.15 4.00-5.50 MIL/uL Hemoglobin 13.9 12.0-16.0 g/dL Hematocrit 40.0 36-48 % Mean Corpuscular Volume 96.4 79-99 fL Mean Corpuscular Hemoglobin 33.5 H 27.0-33.0 pg Mean Corpuscular Hemoglobin Concent 34.8 32.0-36.0 g/dL Red Cell Distribution Width 12.7 11.0-15.5 % Platelet Count 292 130-400 K/uL Mean Platelet Volume 10.7 H 7.5-10.5 fL Immature Granulocyte % (Auto) 0.6 0-1 % Neutrophils (%) (Auto) 93.0 H 40.0-77.0 % Lymphocytes (%) (Auto) 4.0 L 21.0-51.0 % Monocytes (%) (Auto) 2.3 L 3.0-13.0 % Eosinophils (%) (Auto) 0.0 0.0-8.0 % Basophils (%) (Auto) 0.1 0.0-5.0 % Neutrophils # (Auto) 16.2 H 1.8-7.7 K/uL Lymphocytes # (Auto) 0.7 L 1.0-4.8 K/uL Monocytes # (Auto) 0.4 0.1-1.0 K/uL Eosinophils # (Auto) 0.00 0.00-0.70 K/uL Basophils # (Auto) 0.02 0.00-0.20 K/uL Absolute Immature Granulocyte (auto 0.10 0-1 K/uL Nucleated Red Blood Cells 0.0 0.0-0.19 % Sodium Level 141 136-145 mmol/L Potassium Level 4.2 3.5-5.1 mmol/L Chloride Level 108 101-111 mmol/L Carbon Dioxide Level 23 21-32 mmol/L Blood Urea Nitrogen 13 7-18 mg/dL Creatinine 0.4 L 0.5-1.0 mg/dL Glomerular Filtration Rate Calc 134 >90 mL/min Random Glucose 140 H 70-105 mg/dL Lactic Acid Level 1.1 0.8-2.5 mmol/L Total Calcium 8.5 8.5-10.1 mg/dL Magnesium Level 1.90 1.80-2.40 mg/dL Total Bilirubin 0.4 0.2-1.0 mg/dL Aspartate Amino Transf (AST/SGOT) 21 10-37 U/L Alanine Aminotransferase (ALT/SGPT) 25 12-78 U/L Alkaline Phosphatase 62 50-136 U/L C-Reactive Protein, Quantitative 60.90 H 0.5-3.0 mg/L Total Protein 7.4 6.0-8.3 g/dL Albumin 3.4 L 3.5-5.0 g/dL Phosphorus Level 3.4 2.5-4.9 mg/dL Procalcitonin < 0.05 L 0.05-0.5 ng/mL Influenza Type A Antigen Negative For Type A NEGATIVE Influenza Type B Antigen Negative For Type B NEGATIVE SARS-CoV-2 Antigen (Rapid) PRESUMPTIVE NEGATIVE NEGATIVE Group A Streptococcus Rapid negative NEGATIVE Urine Color YELLOW YELLOW Urine Appearance CLOUDY H CLEAR Urine pH 6.0 5.0-8.0 Urine Specific [place] 1.026 1.001-1.031 Urine Protein 30 H NEGATIVE mg/dL Urine Glucose (UA) NEGATIVE NEGATIVE mg/dL Urine Ketones 40 H NEGATIVE mg/dL Urine Occult Blood LARGE H NEGATIVE Urine Nitrate NEGATIVE NEGATIVE Urine Bilirubin NEGATIVE NEGATIVE mg/dL Urine Urobilinogen 3 H 0.2-1.0 mg/dL Urine Leukocyte Esterase 25 H NEGATIVE Jung/uL Urine RBC TNTC H 0-1 /HPF Urine WBC 26-50 H 0-1 /HPF Urine Squamous Epithelial Cells MANY 0-2 /HPF Urine Bacteria RARE None Seen /HPF Urine HCG, Qualitative NEGATIVE NEGATIVE Test 06/15/25 23:01 Range/Units White Cell Morphology Comment See comments Current Medications Medications (Trade) Dose Ordered Sig/Lizet Route PRN Reason Start Time Stop Time Status Last Admin Dose Admin Acetaminophen (TYLenol 325MG TAB) 650 mg Q6H PRN PO TEMPERATURE GREATER THAN 101.5 06/16/25 01:30 07/16/25 01:29 Albuterol (DUOneb) 1 UDVIAL [id number] IH 06/16/25 06:00 07/16/25 05:59 06/17/25 11:01 1 UDVIAL Albuterol (DUOneb) 1 UDVIAL [id number] IH 06/16/25 18:00 06/16/25 12:43 DC Benzonatate (Tessalon 100mg Caps) 100 mg Q8H PRN PO COUGH 06/17/25 13:00 07/17/25 12:59 Budesonide (Pulmicort 0.5 Mg/2ml) 0.5 mg BIDRESP IH 06/16/25 18:00 07/16/25 17:59 06/17/25 06:20 0.5 MG Ceftriaxone Sodium (ROCEphine 1G INJ) 1 gm Q24H IVPB 06/16/25 01:30 06/16/25 06:05 DC 06/16/25 01:39 1 GM Ceftriaxone Sodium (ROCEphine 1G INJ) 1 gm Q24H IVPB 06/16/25 13:00 06/26/25 12:59 06/17/25 13:47 1 GM Doxycycline Hyclate 250 ml @ 125 mls/hr Q12H IV 06/16/25 13:00 06/26/25 12:59 06/17/25 13:47 125 MLS/HR Enoxaparin Sodium (Lovenox) 40 mg DAILY SQ 06/16/25 09:00 07/16/25 08:59 06/17/25 08:49 40 MG Famotidine (Pepcid 20mg Tab) 20 mg DAILY PO 06/16/25 09:00 07/16/25 08:59 06/17/25 08:48 20 MG Guaifenesin (RobiTUSSin SUGAR-FREE 100 MG/ 5 ML UDCUP) 400 mg Q4H PRN PO cough 06/16/25 01:30 07/16/25 01:29 Hydralazine HCl (APRESOLine 20MG INJ) 10 mg Q6H PRN IV For:SBP above 160;DBP above 90 06/16/25 01:30 07/16/25 01:29 Methylprednisolone Sodium Succinate (Solu-medROL 40MG) 40 mg Q8H IVP 06/16/25 08:30 07/16/25 08:29 06/17/25 08:48 40 MG Methylprednisolone Sodium Succinate (Solu-medROL 125MG) 125 mg ONCE IVP 06/16/25 17:42 06/16/25 20:11 DC Morphine Sulfate (morPHINE 2MG SYG) 2 mg Q4H PRN IVP SEVERE PAIN (7-10) 06/16/25 01:30 06/23/25 01:29 Ondansetron HCl (zoFRAN 4MG INJ) 4 mg Q6H PRN IV NAUSEA/VOMITING 06/16/25 01:30 07/16/25 01:29 Piperacillin Sod/ Tazobactam Sod (Zosyn 3.375gm+NS 50ml) 3.375 gm Q8H IVPB 06/16/25 06:30 06/16/25 07:16 DC Piperacillin Sod/ Tazobactam Sod (Zosyn 3.375gm+NS 50ml) 3.375 gm Q8H IVPB 06/16/25 08:30 06/16/25 12:42 DC 06/16/25 09:26 3.375 GM Sodium Chloride 1,000 ml @ 75 mls/hr [id number] IV 06/16/25 14:30 07/16/25 14:29 06/16/25 18:49 75 MLS/HR Sodium Chloride (NS 50ml) 50 ml AD IV 06/16/25 09:00 06/16/25 06:06 DC DIAGNOSTICS / RADIOLOGY: [ ] ASSESSMENT: Asthma exacerbation, POA Acute Hypoxic Respiratory Failure, POA Leukocytosis, POA Urinary tract infection, POA Possible community acquired pneumonia, POA PLAN: Asthma exacerbation, POA * Patient presented with shortness of breath, tachycardia * Continue patient on DuoNeb and Pulmicort * Patient no one 2 L.Tried to wean off but patient became short of breath * Pulmonology consulted Urinary tract infection, POA * Patient's urine positive for leukocyte esterase and WBC in the range of 25-60 * Urine culture no growth in 24 hrs * Continue patient on Rocephin and doxycycline Possible community acquired pneumonia, POA * Patient presented with presented with cough, chills * Patient's chest x-ray showed no acute abnormality * Continue patient on Rocephin and doxycycline Acute Hypoxic Respiratory Failure, POA * Patient has SpO2 of 95 on 2L NC so the PaO2/FiO2 is 285 which is less than 300 * Patient shows work of breathing when not on Nasal cannula * Patient is improving as she was on 3L does but now she is on 2 L O2. * Pulmonology consulted ATTESTATION BY PHYSICIAN I have seen and examined the patient. I reviewed the documentation, medical decision making, and treatment plan as noted by the resident provider above. I agree with the findings and plan of care. Fernando Wise MD, ABHINAV MD Jun 17, 2025 14:33
[2025-06-17] MEDS ORDERED: MAGNESIUM 2GM PREMIX 50ML 50 ML IV PRN (15:00)
--- NOTE | 2025-06-17 15:45 | NUR ---
PROVIDER ORDERS SPOKE WITH ABDULLAHI CLIFFORD FROM [facility] REGARDING NEW PATIENT CONSULT. PER [employer] DELIVERY CONSULTANT, ORDER CHEST X-RAY AND ABG'S AND WILL CONSULT WITH PATIENT TOMORROW 06/18.
[2025-06-17 16:30] LABS: ABG BASE EXCESS -4.6 mmol/L (-2.0-3.0); ABG HCO3 19.6 mmol/L (21.0-28.0); ABG OXYGEN SATURATION 97.7 % (94.0-98.0); ABG PCO2 34 mmHg (32-45); ABG PH 7.380 (7.350-7.450); DEVICE COMMENT RR JACKIE, RN; PO2, ARTERIAL BG 103.9 mmHg (83.0-108.0); TEMPERATURE, CELSIUS BG 37.0 CELSIUS (35.5-37.0); VENT MODE, BG 2 L NC (ROOM AIR)
[2025-06-17] MEDS: Solu-medROL 40MG VIAL IVP SCH (20:02)
[2025-06-18] VITALS (10 sets, daily range): BP systolic 102–135; BP diastolic 60–88; PULSE 78–100; RESP 16–20; TEMP 97.8–98.3; O2SAT 92–99
[2025-06-18 04:15] LABS: NUCLEATED RED BLOOD CELLS 0.0 % (0.0-0.19); PLATELET COUNT (AUTO) 325.0 K/uL (130-400); RED BLOOD CELL COUNT(AUTO) 3.98 MIL/uL (4.00-5.50); RED CELL DISTRIBUTION WIDTH 13.0 % (11.0-15.5); WHITE BLOOD COUNT (AUTO) 13.4 K/uL (4.8-10.8)
[2025-06-18 04:22] LABS: CREATININE 0.6 mg/dL (0.5-1.0); GLOMERULAR FILTR. RATE CALC 121.0 mL/min (>90); GLUCOSE,RANDOM 161.0 mg/dL (70-105); SODIUM SERUM 141.0 mmol/L (136-145); UREA NITROGEN, BLOOD 9.0 mg/dL (7-18)
--- NOTE | 2025-06-18 06:55 | HMCIMG ---
EXAM: CR Chest, 1 view CLINICAL HISTORY: Asthma exacerbation. COMPARISON: Chest radiograph dated 06/15/2025. FINDINGS: Interval development of bilateral lower zone airspace disease. No pleural effusion or pneumothorax. The cardiomediastinal silhouette is within normal limits. No acute osseous abnormality. IMPRESSION: Interval development of bilateral lower zone airspace disease could be atelectasis or pneumonia. /Cache
--- NOTE | 2025-06-18 08:55 | NUR ---
PROVIDED PT WITH SPECIMEN CUP FOR SPUTUM COLLECTIONS. NO FURTHER QUESTIONS AT TIME TIME
[2025-06-18] MEDS: BENZONATATE 100 MG CAPSULE PO SCH (10:36)
[2025-06-18] MEDS: SODIUM CHLORIDE 3% FOR INHALATION 4 ML/AMP VIAL.NEB IH ONE ×2 (11:13→20:30)
--- NOTE | 2025-06-18 12:37 | CONS ---
[facility] CONSULTATION NOTE Date Patient Seen: Jun 18, 2025 Time of Visit: 12:23 Supervising Physician: [ ] Dr. Sofie Dubois Reason for Consultation: [ ] Acute on chronic asthma exacerbation Primary Care Physician: [ ] Outpatient Specialists: [ ] Inpatient Consults: [ ] HANS PROBLEM LIST: Acute on chronic asthma exacerbation Acute cystitis PLAN SUMMARY: Supplemental oxygen as needed Wean off as tolerated Obtain ABG Solu-Medrol 40 mg IV every8 hours Montelukast 10 mg daily Continue Rocephin Continue doxycycline Pulmicort b.i.d. Outpatient follow up in Pulmonary Clinic 1-2 weeks post discharge HPI: Ms. Dubois is a 35-year-old female who came to the emergency department with a chief complaint of shortness of breath. She has associated cough both of which started from last Monday and got exacerbated yesterday night for which she came to the ER. Patient has had previous episodes of asthma exacerbation with hospital admission. She only uses albuterol when she has asthma exacerbation which she said did not help this time. Patient does not have a PCP currently. Patient's lab showed WBC of 15.2, left shift neutrophils 89.5%, urinalysis positive for leukocyte esterase and urine WBCs in the range of 26-50. She was started on Zosyn. Chest x-ray showed no acute cardiopulmonary process. She was also tachycardic with her heart rate in 116. Patient continued with shortness on breath requiring 3 L nasal cannula and for this reason we are consulted. Patient is seen sitting up in bed currently on room air and denies dyspnea at rest. On exam noted patient continues with bilateral scattered wheezing. 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 Patient admits she is always around lots of people who smoke in her in her home and her family/friends [place]irie [place]. Patient admits she spends time at bars where there is a lot of smoke inhaled. Patient admits her symptoms began soon after her attending on gathering and was around multiple smokers. Patient was advised to maintain distance from people smoking tobacco as well as bars. Patient had peak flow results of 150 mL which is extremely low for person her age. Recommend continue duo nebs as well as Pulmicort b.i.d.. Continue current antibiotic regimen. Continue high-dose steroids for a short course until wheezing resolves. Request a 6 minute walk test prior to discharge. Patient was advised to follow up in Pulmonary Clinic in 1-2 weeks post discharge. Patient reports she currently does not have insurance and given her financial status is quite difficult to follow up with specialists. We will con mateo to follow with you during her hospitalization. ABG results were noted. Patient was found to needed CRP. We will continue steroids for now. PAST MEDICAL HX: see above PAST SURGICAL HX: noncontributory SOCIAL HISTORY: No tobacco, ETOH, or illicit drug use Coded Allergies: No Known Drug Allergies (Verified Allergy, 11/25/12) REVIEW OF SYSTEMS: 12 point ROS reviewed with patient. Pertinent positives mentioned above. Otherwise negative. PHYSICAL EXAM: GENERAL: alert, weak, awake oriented x 3 HEENT: EOMI, Sclera non icteric, moist mucosa NECK: Supple, no JVD, trachea midline LUNGS: Clear breath sounds bilaterally. No wheezes HEART: Regular rate and rhythm. Normal S1 and S2, without murmurs ABD: Abdomen soft, nontender. Bowel sounds present EXT: No clubbing cyanosis or edema NEURO: Alert and oriented to person, follows commands Vital Signs (last 8hr) Date Time Temp Pulse Resp B/P (MAP) Pulse Ox O2 Delivery O2 Flow Rate FiO2 06/18/25 11:13 78 18 06/18/25 08:00 97.9 83 16 102/70 92 Room Air 06/18/25 06:28 89 18 N/Cannula Low lpm 2.0 06/18/25 06:27 89 18 LABS: Hematology Labs: Test 06/18/25 03:28 06/17/25 04:46 Range/Units White Blood Count 13.4 H 4.8-10.8 K/uL Red Blood Count 3.98 L 4.00-5.50 MIL/uL Hemoglobin 13.7 12.0-16.0 g/dL Hematocrit 38.2 36-48 % Mean Corpuscular Volume 96.0 79-99 fL Mean Corpuscular Hemoglobin 34.4 H 27.0-33.0 pg Mean Corpuscular Hemoglobin Concent 35.9 32.0-36.0 g/dL Red Cell Distribution Width 13.0 11.0-15.5 % Platelet Count 325 130-400 K/uL Mean Platelet Volume 10.9 H 7.5-10.5 fL Nucleated Red Blood Cells 0.0 0.0-0.19 % Immature Granulocyte % (Auto) 0.6 0-1 % Neutrophils (%) (Auto) 93.0 H 40.0-77.0 % Lymphocytes (%) (Auto) 4.0 L 21.0-51.0 % Monocytes (%) (Auto) 2.3 L 3.0-13.0 % Eosinophils (%) (Auto) 0.0 0.0-8.0 % Basophils (%) (Auto) 0.1 0.0-5.0 % Neutrophils # (Auto) 16.2 H 1.8-7.7 K/uL Lymphocytes # (Auto) 0.7 L 1.0-4.8 K/uL Monocytes # (Auto) 0.4 0.1-1.0 K/uL Eosinophils # (Auto) 0.00 0.00-0.70 K/uL Basophils # (Auto) 0.02 0.00-0.20 K/uL Absolute Immature Granulocyte (auto 0.10 0-1 K/uL Chemistry Labs: Test 06/18/25 03:28 06/17/25 04:46 Range/Units Sodium Level 141 136-145 mmol/L Potassium Level 3.8 3.5-5.1 mmol/L Chloride Level 108 101-111 mmol/L Carbon Dioxide Level 23 21-32 mmol/L Blood Urea Nitrogen 9 7-18 mg/dL Creatinine 0.6 0.5-1.0 mg/dL Glomerular Filtration Rate Calc 121 >90 mL/min Random Glucose 161 H 70-105 mg/dL Total Calcium 8.2 L 8.5-10.1 mg/dL Lactic Acid Level 1.1 0.8-2.5 mmol/L Magnesium Level 1.90 1.80-2.40 mg/dL Total Bilirubin 0.4 0.2-1.0 mg/dL Aspartate Amino Transf (AST/SGOT) 21 10-37 U/L Alanine Aminotransferase (ALT/SGPT) 25 12-78 U/L Alkaline Phosphatase 62 50-136 U/L C-Reactive Protein, Quantitative 60.90 H 0.5-3.0 mg/L Total Protein 7.4 6.0-8.3 g/dL Albumin 3.4 L 3.5-5.0 g/dL DIAGNOSTICS / RADIOLOGY RESULTS: PATIENT: DIPIKA DUBOIS MR#: [id number] : 1990 SEX: F AGE: 35 LOCATION: [facility] ORDER [id number] STATUS: ADM IN REPORT#: [id number] SERVICE 1543 REASON: ASTHMA EXACERBATION ORDERING PHYSICIAN: ABDULLAHI CLIFFORD NP PROCEDURE: CXR1VW - CHEST 1VW EXAM: CR Chest, 1 view CLINICAL HISTORY: Asthma exacerbation. COMPARISON: Chest radiograph dated 06/15/2025. FINDINGS: Interval development of bilateral lower zone airspace disease. No pleural effusion or pneumothorax. The cardiomediastinal silhouette is within normal limits. No acute osseous abnormality. IMPRESSION: Interval development of bilateral lower zone airspace disease could be atelectasis or pneumonia. /[place] DICTATED BY: JOSÉ MIGUEL LA Jr., MD DATE: 06/18/25753 ELECTRONICALLY SIGNED BY: JOSÉ MIGUEL LA Jr., MD DATE: 06/18/25753 PLAN NEURO: Minimize central acting medications as possible. Maintain fall precautions, adequate lighting during the day PULMONARY: Supplemental 02 as needed. Maintain aspiration precautions at all times CARDIOVASCULAR: Follow hemodynamics. Vital signs per facility protocol GI & NUTRITION: Continue with nutritional support. Continue stool softeners and laxatives as needed. KIDNEYS & ELECTROLYTES: Strict monitoring of intake, output and overall fluid balance. Avoid nephrotoxic medications to the extent possible. Medications to be dosed according to renal function. Monitor electrolytes and replace as needed ENDOCRINE: Maintain blood glucose between 100-180 at all times. Hypoglycemia protocol in place INFECTIOUS DISEASE: Trend temperature, WBC and procalcitonin level Follow cultures, deescalate antibiotics as soon as possible. Panculture if new onset fever ONCOLOGY/HEMATOLOGY/COAGULATION: Monitor for s/s of bleeding Monitor hemoglobin, coagulation studies as needed SKIN: Pressure ulcer prevention per facility protocol Specialty mattress ORTHO/REHAB: Continue PT/OT Prophylaxis: Continue GI and DVT prophylaxis Code Status: Full Resuscitation Disposition: As per attending ATTESTATION BY PHYSICIAN The patient has been seen and evaluated, the case has been discussed with the OUTSIDE CUTTER, I agree with the clinical findings and plan of care. Vasyl Dubois MD, ECTOR N OUTSIDE CUTTER Jun 18, 2025 12:37
--- NOTE | 2025-06-18 16:30 | PN ---
[facility] PROGRESS NOTE Date of Service: Jun 18, 2025 Time of Service: 16:05 SUBJECTIVE: Ms. Dubois is a 35-year-old female who came to the emergency department with a chief complaint of shortness of breath. She has associated cough both of which started from last Monday and got exacerbated yesterday night for which she came to the ER. Patient has had previous episodes of asthma exacerbation with hospital admission. She only uses albuterol when she has asthma exacerbation which she said did not help this time. Patient does not have a PCP currently. Patient's lab showed WBC of 15.2, left shift neutrophils 89.5%, urinalysis positive for leukocyte esterase and urine WBCs in the range of 26-50. She was started on Zosyn. Chest x-ray showed no acute cardiopulmonary process. She was also tachycardic with her heart rate in 116. 06/16/25: Patient was evaluated in her room without family present. She was placed on oxygen on 3 L nasal cannula, her pulse has improved and is now in the 80's range. She has become a bit hypotensive with a blood pressure rate at 99/61 so we started her on fluids. She is not short of breath but has a bit of chest tightness still. Her WBC has increased from 15.2-15.8 She also has increased lactic acid at 2.6. Patient's serology came back negative for influenza, COVID and group A strep rapid. A urine culture has been ordered pending results. Patient started on DuoNeb and Pulmicort. Zosyn has been discontinued and she has been placed on Rocephin and doxycycline. A test for peak flow has also been ordered. We will continue the current therapy to see if there is any improvement. 06/17/25: Patient was evaluated in her room with family present. Patient is started on DuoNeb and Pulmicort. Patient started on normal saline which seems to have helped with her blood pressure. Today in the morning the blood pressure was 110/65. The patient has cough and shortness of breath when she walks a short distance. We tried to wean the patient off of nasal cannula but she still becomes short of breath so she is still on nasal cannula on 2L oxygen. The test for peak flow gave us a result of 150 mL. She said her chest tightness has improved but still has shortness of breath so we have consulted pulmonology for further recommendations. 06/18/25: Patient was evaluated in her room. Patient is now off of nasal cannula resting comfortably on room air. Patient is continued on DuoNeb and Pulmicort. The patient still has cough but no shortness of breath. Her peak flow has increased to 170 mL today. Pulmonology saw her and recommended to "continue her DuoNebs as well as Pulmicort b.i.d.. Continue current antibiotic regimen. Continue high-dose steroids for a short course until wheezing results. Request a 6 minute walk test prior to discharge. And to follow up in Pulmonary Clinic in 1-2 weeks post discharge."Pulmonology also ordered a repeat chest x- ray which showed interval development of bilateral lower zone airspace disease could be atelectasis or pneumonia. So we ordered a chest CT. Patient currently on ceftriaxone and doxycycline. REVIEW OF SYSTEMS CONSTITUTIONAL: Chills, denies fevers or night sweats. No unintentional weight loss reported. NEUROLOGICAL: Denies headache, amaurosis fugax, motor weakness, sensory deficit, vertigo/spinning sensation, gait abnormalities, or tremors. ENT: No hearing loss, rhinitis, rhinorrhea, hoarseness, or sore throat. CARDIOVASCULAR: Denies any exertional angina, dyspnea on exertion, orthopnea, paroxysmal nocturnal dyspnea, palpitations. PULMONARY: Shortness of breath, cough, denies phlegm/sputum, hemoptysis, pleuritic chest pain. GASTROINTESTINAL: Denies any type of dysphagia to either liquids or solids. Denies nausea, vomiting, abdominal pain, diarrhea, constipation, or changes in stool consistency or caliber. GENITOURINARY: Denies frequency, urgency, nocturia, hematuria or incontinence ENDOCRINOLOGIC: Denies polyuria, polydipsia, polyphagia or heat/cold intolerances. DERMATOLOGIC: Denies rashes or pruritus. PHYSICAL EXAM GENERAL APPEARANCE: The patient is awake, alert, and oriented, in no acute cardiopulmonary distress. NEUROLOGICAL: Motor is 5/5 in bilateral upper and lower extremities proximal to distal. No sensory deficits. HEENT: Face is symmetric. Pupils are equal and reactive. Extraocular movements are intact. NECK: Supple. No JVD. No lymphadenopathy. CHEST: Normal chest expansion. No Telemetry. LUNGS: Wheezing. Absence of any rales, rhonchi CARDIOVASCULAR: Regular. S1 and S2 normal. No appreciable rubs, murmurs or gallops. ABDOMEN: Soft, nontender, and nondistended. There is no rebound, voluntary guarding, or rigidity. : Deferred. No Gutiérrez. EXTREMITIES: Non-edematous and not cyanotic. No clubbing. Good capillary refill. SKIN: No skin breakdown. Vital Signs (last 8hr) Date Time Temp Pulse Resp B/P (MAP) Pulse Ox O2 Delivery O2 Flow Rate FiO2 06/18/25 11:13 78 18 LABS: Laboratory: Test 06/18/25 03:28 06/17/25 16:29 06/17/25 04:46 Range/Units White Blood Count 13.4 H 4.8-10.8 K/uL Red Blood Count 3.98 L 4.00-5.50 MIL/uL Hemoglobin 13.7 12.0-16.0 g/dL Hematocrit 38.2 36-48 % Mean Corpuscular Volume 96.0 79-99 fL Mean Corpuscular Hemoglobin 34.4 H 27.0-33.0 pg Mean Corpuscular Hemoglobin Concent 35.9 32.0-36.0 g/dL Red Cell Distribution Width 13.0 11.0-15.5 % Platelet Count 325 130-400 K/uL Mean Platelet Volume 10.9 H 7.5-10.5 fL Nucleated Red Blood Cells 0.0 0.0-0.19 % Sodium Level 141 136-145 mmol/L Potassium Level 3.8 3.5-5.1 mmol/L Chloride Level 108 101-111 mmol/L Carbon Dioxide Level 23 21-32 mmol/L Blood Urea Nitrogen 9 7-18 mg/dL Creatinine 0.6 0.5-1.0 mg/dL Glomerular Filtration Rate Calc 121 >90 mL/min Random Glucose 161 H 70-105 mg/dL Total Calcium 8.2 L 8.5-10.1 mg/dL Blood Gas Specimen Type Arterial Arterial Blood pH 7.380 7.350-7.450 Arterial Blood Partial Pressure CO2 34 32-45 mmHg Arterial Blood Partial Pressure O2 103.9 83.0-108.0 mmHg Arterial Blood HCO3 19.6 L 21.0-28.0 mmol/L Arterial Blood Oxygen Saturation 97.7 94.0-98.0 % Arterial Blood Base Excess -4.6 L -2.0-3.0 mmol/L Blood Gas Temperature 37.0 35.5-37.0 CELSIUS Blood Gas Flow-by 2.00 0.00-15.00 L/min Blood Gas Vent Mode 2 L NC ROOM AIR FiO2 28.0 % Blood Gas Specimen Comment RR BETITO PALM Immature Granulocyte % (Auto) 0.6 0-1 % Neutrophils (%) (Auto) 93.0 H 40.0-77.0 % Lymphocytes (%) (Auto) 4.0 L 21.0-51.0 % Monocytes (%) (Auto) 2.3 L 3.0-13.0 % Eosinophils (%) (Auto) 0.0 0.0-8.0 % Basophils (%) (Auto) 0.1 0.0-5.0 % Neutrophils # (Auto) 16.2 H 1.8-7.7 K/uL Lymphocytes # (Auto) 0.7 L 1.0-4.8 K/uL Monocytes # (Auto) 0.4 0.1-1.0 K/uL Eosinophils # (Auto) 0.00 0.00-0.70 K/uL Basophils # (Auto) 0.02 0.00-0.20 K/uL Absolute Immature Granulocyte (auto 0.10 0-1 K/uL Lactic Acid Level 1.1 0.8-2.5 mmol/L Magnesium Level 1.90 1.80-2.40 mg/dL Total Bilirubin 0.4 0.2-1.0 mg/dL Aspartate Amino Transf (AST/SGOT) 21 10-37 U/L Alanine Aminotransferase (ALT/SGPT) 25 12-78 U/L Alkaline Phosphatase 62 50-136 U/L C-Reactive Protein, Quantitative 60.90 H 0.5-3.0 mg/L Total Protein 7.4 6.0-8.3 g/dL Albumin 3.4 L 3.5-5.0 g/dL Current Medications Medications (Trade) Dose Ordered Sig/Lizet Route PRN Reason Start Time Stop Time Status Last Admin Dose Admin Acetaminophen (TYLenol 325MG TAB) 650 mg Q6H PRN PO TEMPERATURE GREATER THAN 101.5 06/16/25 01:30 07/16/25 01:29 Albuterol (DUOneb) 1 UDVIAL [id number] 06/16/25 06:00 07/16/25 05:59 06/18/25 11:13 1 UDVIAL Albuterol (DUOneb) 1 UDVIAL [id number] IH 06/16/25 18:00 06/16/25 12:43 DC Benzonatate (Tessalon 100mg Caps) 100 mg Q8H PO 06/18/25 10:00 07/17/25 12:59 06/18/25 10:36 100 MG Benzonatate (Tessalon 100mg Caps) 100 mg Q8H PRN PO COUGH 06/17/25 13:00 06/18/25 09:53 DC Budesonide (Pulmicort 0.5 Mg/2ml) 0.5 mg BIDRESP IH 06/16/25 18:00 07/16/25 17:59 06/18/25 06:22 0.5 MG Ceftriaxone Sodium (ROCEphine 1G INJ) 1 gm Q24H IVPB 06/16/25 01:30 06/16/25 06:05 DC 06/16/25 01:39 1 GM Ceftriaxone Sodium (ROCEphine 1G INJ) 1 gm Q24H IVPB 06/16/25 13:00 06/26/25 12:59 06/18/25 14:38 1 GM Doxycycline Hyclate 250 ml @ 125 mls/hr Q12H IV 06/16/25 13:00 06/26/25 12:59 06/18/25 14:38 125 MLS/HR Enoxaparin Sodium (Lovenox) 40 mg DAILY SQ 06/16/25 09:00 07/16/25 08:59 06/18/25 09:10 40 MG Famotidine (Pepcid 20mg Tab) 20 mg DAILY PO 06/16/25 09:00 07/16/25 08:59 06/18/25 09:09 20 MG Guaifenesin (RobiTUSSin SUGAR-FREE 100 MG/ 5 ML UDCUP) 400 mg Q4H PRN PO cough 06/16/25 01:30 07/16/25 01:29 Hydralazine HCl (APRESOLine 20MG INJ) 10 mg Q6H PRN IV For:SBP above 160;DBP above 90 06/16/25 01:30 07/16/25 01:29 Magnesium Sulfate 50 ml @ 0 mls/hr PROTOCOL PRN IV As needed 06/17/25 15:00 07/17/25 14:59 Methylprednisolone Sodium Succinate (Solu-medROL 40MG) 40 mg Q8H IVP 06/16/25 08:30 06/17/25 18:43 DC 06/17/25 08:48 40 MG Methylprednisolone Sodium Succinate (Solu-medROL 40MG) 40 mg Q8H IVP 06/17/25 19:00 07/17/25 18:59 06/18/25 10:37 40 MG Methylprednisolone Sodium Succinate (Solu-medROL 125MG) 125 mg ONCE IVP 06/16/25 17:42 06/16/25 20:11 DC Morphine Sulfate (morPHINE 2MG SYG) 2 mg Q4H PRN IVP SEVERE PAIN (7-10) 06/16/25 01:30 06/23/25 01:29 Ondansetron HCl (zoFRAN 4MG INJ) 4 mg Q6H PRN IV NAUSEA/VOMITING 06/16/25 01:30 07/16/25 01:29 Piperacillin Sod/ Tazobactam Sod (Zosyn 3.375gm+NS 50ml) 3.375 gm Q8H IVPB 06/16/25 06:30 06/16/25 07:16 DC Piperacillin Sod/ Tazobactam Sod (Zosyn 3.375gm+NS 50ml) 3.375 gm Q8H IVPB 06/16/25 08:30 06/16/25 12:42 DC 06/16/25 09:26 3.375 GM Sodium Chloride 1,000 ml @ 75 mls/hr [id number] IV 06/16/25 14:30 07/16/25 14:29 06/16/25 18:49 75 MLS/HR Sodium Chloride (NS 50ml) 50 ml AD IV 06/16/25 09:00 06/16/25 06:06 DC DIAGNOSTICS / RADIOLOGY: [address] [address] IMAGING REPORT Signed PATIENT: DIPIKA DUBOIS MR#: [id number] : 1990 SEX: F AGE: 35 LOCATION: [facility] ORDER [id number] STATUS: ADM IN REPORT#: [id number] SERVICE 1543 REASON: ASTHMA EXACERBATION ORDERING PHYSICIAN: ABDULLAHI CLIFFORD NP PROCEDURE: CXR1VW - CHEST 1VW EXAM: CR Chest, 1 view CLINICAL HISTORY: Asthma exacerbation. COMPARISON: Chest radiograph dated 06/15/2025. FINDINGS: Interval development of bilateral lower zone airspace disease. No pleural effusion or pneumothorax. The cardiomediastinal silhouette is within normal limits. No acute osseous abnormality. IMPRESSION: Interval development of bilateral lower zone airspace disease could be atelectasis or pneumonia. /[place] DICTATED BY: JOSÉ MIGUEL LA Jr., MD DATE: 06/18/25753 ELECTRONICALLY SIGNED BY: JOSÉ MIGUEL LA Jr., MD DATE: 06/18/25753 ASSESSMENT: Asthma exacerbation, POA Acute Hypoxic Respiratory Failure, POA, now resolved Leukocytosis, POA Urinary tract infection, POA Possible community acquired pneumonia, POA PLAN: Asthma exacerbation, POA * Patient presented with shortness of breath, tachycardia * Continue patient on DuoNeb and Pulmicort * Patient now on room air with a peak flow of 170 * Pulmonology consulted Urinary tract infection, POA * Patient's urine positive for leukocyte esterase and WBC in the range of 25-60 * Urine culture no growth in 48 hrs * Continue patient on Rocephin and doxycycline Possible community acquired pneumonia, POA * Patient presented with presented with cough, chills * Patient's chest x-ray showed no acute abnormality * Blood cultures show no growth in 48 hours * Continue patient on Rocephin and doxycycline Acute Hypoxic Respiratory Failure, POA, now resolved * Patient breathing comfortably on room air. * Pulmonology consulted ATTESTATION BY PHYSICIAN I have seen and examined the patient. I reviewed the documentation, medical deci suellen making, and treatment plan as noted by the resident provider above. I agree with the findings and plan of care. Fernando Wise MD, ABHINAV MD Jun 18, 2025 16:30
[2025-06-19] VITALS (13 sets, daily range): BP systolic 111–144; BP diastolic 64–87; PULSE 63–104; RESP 18–20; TEMP 97.6–98; O2SAT 95–99
[2025-06-19 05:04] LABS: NUCLEATED RED BLOOD CELLS 0.0 % (0.0-0.19); PLATELET COUNT (AUTO) 330 K/uL (130-400); RED BLOOD CELL COUNT(AUTO) 4.05 MIL/uL (4.00-5.50); RED CELL DISTRIBUTION WIDTH 12.1 % (11.0-15.5); WHITE BLOOD COUNT (AUTO) 14.4 K/uL (4.8-10.8)
[2025-06-19 05:23] LABS: CREATININE 0.6 mg/dL (0.5-1.0); GLOMERULAR FILTR. RATE CALC 121.0 mL/min (>90); GLUCOSE,RANDOM 141.0 mg/dL (70-105); SODIUM SERUM 137.0 mmol/L (136-145); UREA NITROGEN, BLOOD 7.0 mg/dL (7-18)
--- NOTE | 2025-06-19 08:55 | HMCIMG ---
EXAM: Non-contrast CT examination of the chest. CLINICAL HISTORY: Suspicion of pneumonia. TECHNIQUE: Thin collimated axial CT images of the chest were obtained, and sagittal and coronal reformatted images were also submitted. A CT scan is done according to ALARA (As Low as Reasonably Achievable). CONTRAST USED: None. COMPARISON: None provided. FINDINGS: Moderate collapse consolidation in the right lower lobe, sparing the medial segment. Subsegmental atelectasis in the posterior segment of the left lower lobe. Multifocal patchy small groundglass opacities suggest pneumonitis bilaterally. No pleural effusions. No pericardial effusion. The heart size is within normal limits. No axillary, supraclavicular, or mediastinal lymphadenopathy. Limited views of the upper abdomen demonstrate no abnormality. No acute or suspicious osseous abnormality. IMPRESSION: Moderate collapse consolidation in the right lower lobe, sparing the medial segment. Subsegmental atelectasis in the posterior segment of the left lower lobe. Multifocal patchy small groundglass opacities suggest pneumonitis bilaterally. /[place]
[2025-06-19] MEDS: Solu-medROL 40MG VIAL IVP SCH (09:34)
[2025-06-19] MEDS ORDERED: AZIT250T9 PO (10:27)
[2025-06-19] MEDS ORDERED: AZIT500T4 PO (10:27)
[2025-06-19] MEDS ORDERED: PRED20TA3 PO (10:27)
[2025-06-19] MEDS ORDERED: AUD NEB (10:27)
[2025-06-19] MEDS ORDERED: NEBU-305 MC (10:28)
[2025-06-19] MEDS ORDERED: MONT-39 PO (10:31)
[2025-06-19] MEDS ORDERED: FLUT15.845 NS (10:38)
[2025-06-19] MEDS ORDERED: BENZ-39 PO (10:48)
--- NOTE | 2025-06-19 11:30 | DS ---
Discharge Summary Hospital Course Summary: Ms. Dubois is a 35-year-old female who came to the emergency department with a chief complaint of shortness of breath. She has associated cough both of which started from last Monday and got exacerbated yesterday night for which she came to the ER. Patient has had previous episodes of asthma exacerbation with hospital admission. She only uses albuterol when she has asthma exacerbation which she said did not help this time. Patient does not have a PCP currently. Patient's lab showed WBC of 15.2, left shift neutrophils 89.5%, urinalysis positive for leukocyte esterase and urine WBCs in the range of 26-50. She was started on Zosyn. Chest x-ray showed no acute cardiopulmonary process. She was also tachycardic with her heart rate in 116. During her stay the patient was placed on oxygen on3 L nasal cannula and was given fluids as her blood pressure was at 99/61. Patient's serology came back negative for influenza a COVID and group a strep. Patient is still her cough, her WBC increased from 15.2-15.8 And her lactic acid was at 2.6. Patient was started on DuoNeb and Pulmicort, Zosyn was discontinued and she was placed on Rocephin and doxycycline. A test for peak flow was ordered. Pulmonology was consulted who recommended to continue on the current dosage, ordered a repeat chest x-ray. The chest x-ray showed interval development of bilateral lower zone airspace disease could be atelectasis or pneumonia, so a chest CT was ord ered. Patient continued to get better, her nasal cannula was discontinued her peak flow which initially was at 150 increased to 170 and eventually to 220. Patient had no more cough, her chest she CT showed moderate collapse consolidation in right lower lobe sparing the medial segment and subsegmental atelectasis in the posterior segment of the left lower lobe and also multifocal patchy small ground-glass opacities suggest pneumonitis bilaterally. Clinically the patient is improving, her vitals are stable, her labs showed WBC trending down, and she passed a 6 minute walking test. We are discharging her on 7 days of prednisone 40 mg oral, Z-Paulo with follow up with pulmonology. Dyeing Machine Tender(s): Pulmonology: Vasyl Dubois MD: Pulmonology was consulted as patient continued with shortness of breath requiring 2 L nasal cannula. Pulmonology recommended t he patient to maintain distance from people smoking tobacco as well as bars recommended continue DuoNebs as well as Pulmicort b.i.d.. Continue current antibiotic regimen. Continue high-dose steroids for a short course until wheezing resolves. Request a 6 minute walk test prior to discharge. Patient was advised to follow up in Pulmonary Clinic in 1-2 weeks post discharge. Procedure(s): [facility] [address] [place] [address] IMAGING REPORT Signed PATIENT: DIPIKA DUBOIS MR#: [id number] : 1990 SEX: F AGE: 35 LOCATION: [facility] ORDER [id number] STATUS: ADM IN REPORT#: [id number] SERVICE [id number] REASON: suspicion of pneumonia ORDERING PHYSICIAN: GARY ZARATE MD PROCEDURE: CHEST WO - CT CHEST W/O CONTRAST EXAM: Non-contrast CT examination of the chest. CLINICAL HISTORY: Suspicion of pneumonia. TECHNIQUE: Thin collimated axial CT images of the chest were obtained, and sagittal and coronal reformatted images were also submitted. A CT scan is done according to ALARA (As Low as Reasonably Achievable). CONTRAST USED: None. COMPARISON: None provided. FINDINGS: Moderate collapse consolidation in the right lower lobe, sparing the medial segment. Subsegmental atelectasis in the posterior segment of the left lower lobe. Multifocal patchy small groundglass opacities suggest pneumonitis bilaterally. No pleural effusions. No pericardial effusion. The heart size is within normal limits. No axillary, supraclavicular, or mediastinal lymphadenopathy. Limited views of the upper abdomen demonstrate no abnormality. No acute or suspicious osseous abnormality. IMPRESSION: Moderate collapse consolidation in the right lower lobe, sparing the medial segment. Subsegmental atelectasis in the posterior segment of the left lower lobe. Multifocal patchy small groundglass opacities suggest pneumonitis bilaterally. /[facility] DICTATED BY: SHELBY PACK MD DATE: 06/19/2554 ELECTRONICALLY SIGNED BY: SHELBY PACK MD DATE: 06/19/[address] [id number] IMAGING REPORT Signed PATIENT: DIPIKA DUBOIS MR#: [id number] : 1990 SEX: F AGE: 35 LOCATION: [facility] ORDER [id number] STATUS: ADM IN REPORT#: [id number] SERVICE 1543 REASON: ASTHMA EXACERBATION ORDERING PHYSICIAN: ABDULLAHI CLIFFORD NP PROCEDURE: CXR1VW - CHEST 1VW EXAM: CR Chest, 1 view CLINICAL HISTORY: Asthma exacerbation. COMPARISON: Chest radiograph dated 06/15/2025. FINDINGS: Interval development of bilateral lower zone airspace disease. No pleural effusion or pneumothorax. The cardiomediastinal silhouette is within normal limits. No acute osseous abnormality. IMPRESSION: Interval development of bilateral lower zone airspace disease could be atelectasis or pneumonia. /[facility] DICTATED BY: JOSÉ MIGUEL LA Jr., MD DATE: 06/18/25753 ELECTRONICALLY SIGNED BY: JOSÉ MIGUEL LA Jr., MD DATE: 06/18/25 075 [place] [address] [id number] IMAGING REPORT Signed PATIENT: DIPIKA DUBOIS MR#: [id number] : 1990 SEX: F AGE: 35 [facility] ORDER 2331 STATUS: ADM IN REPORT#: [id number] SERVICE 232 REASON: sob ORDERING PHYSICIAN: TARYN SOTO MD PROCEDURE: CXR1VW - CHEST 1VW EXAM: CR Chest, 1 view CLINICAL HISTORY: Shortness of breath. COMPARISON: Chest radiograph dated 01/26/2018. FINDINGS: The lungs show no infiltrates or other acute findings. No pleural effusion or pneumothorax. The cardiomediastinal silhouette is within normal limits. No acute osseous abnormality. IMPRESSION: No acute cardiopulmonary process is evident. No interval changes. /[facility] DICTATED BY: JOSÉ MIGUEL LA Jr., MD DATE: 06/16/25301 ELECTRONICALLY SIGNED BY: JOSÉ MIGUEL LA Jr., MD DATE: 06/16/25301 Assessment/Plan: ASSESSMENT: Asthma exacerbation, POA Acute Hypoxic Respiratory Failure, POA, now resolved Leukocytosis, POA Urinary tract infection, POA Possible community acquired pneumonia, POA PLAN: Admission Date: 06/16/25 Discharge Date: 06/19/25 Disposition: Home Condition: Stable Activity: As tolerated Home medications: Continued Discharge medications: Prednisone 40 mg p.o., Z-Paulo Follow-up appointment: Follow up with PCP within 2-3 days of discharge Follow up with pulmonology within 2 weeks of discharge We reinforced the importance of medication adherence and follow-up appointments. Discharge Instructions: Take medication as prescribed Avoid smoking areas and maintain distance from people smoking tobacco Use a mask when handling pets Try avoiding allergens which include pet dander, smoke, dust Call 911 or go to ER if you develop fever, severe abdominal pain or bloating, nausea or vomiting that does not improve, sudden shortness of breath or chest pain. Home Medications: Active Scripts Albuterol Sulfate (Albuterol Sulfate) 2.5 Mg/0.5 Ml Vial.neb, 2.5 MG IH TID for asthma for 30 Days, #120 INH Prov:PRAKASH AVILES NP 05/28/21 Prednisone (Prednisone) 20 Mg Tablet, 20 MG PO DAILY for asthma for 7 Days, #7 TAB Prov:PRAKASH AVILES NP 05/28/21 Albuterol Sulfate (Proair Digihaler) 90 Mcg Aer.pw.bas, 90 MCG IH TID for sob for 30 Days, #1 INH.KIT Prov:PRAKASH AVILES NP 05/28/21 New Medications: Albuterol Sulfate (Albuterol Sulfate) 2.5 Mg/0.5 Ml Vial.neb 1 VIAL NEB Q6H for shortness of breath for 30 Days, #60 ML 0 Refills Azithromycin (Azithromycin) 250 Mg Tablet 1 TAB PO AD for 4 Days, #4 TAB 0 Refills 2 the first day followed by 1 for days 2-5 Azithromycin (Azithromycin) 500 Mg Tablet 1 TAB PO DAILY for 1 Day, #1 TAB 0 Refills Benzonatate (Tessalon Perles) 100 Mg Cap 1 CAP PO TID for cough for 7 Days, #21 CAP 0 Refills Fluticasone Propionate (Fluticasone Propionate) 50 Mcg/Actuation Olin.susp 2 SPRAY NS DAILY for 30 Days, #16 GM 0 Refills Montelukast Sodium (Montelukast Sodium) 10 Mg Tablet 10 TAB PO DAILY for 15 Days, #15 TAB 0 Refills Nebulizer (Nebulizer) 1 Each Each EACH MC, #1 Prednisone (Prednisone) 20 Mg Tablet 40 MG PO DAILY for 7 Days, #7 TAB Discontinued Medications: Albuterol Sulfate (Proair Digihaler) 90 Mcg Aer.pw.bas 90 MCG IH TID for sob for 30 Days, #1 INH.KIT Albuterol Sulfate (Albuterol Sulfate) 2.5 Mg/0.5 Ml Vial.neb 2.5 MG IH TID for asthma for 30 Days, #120 INH Prednisone (Prednisone) 20 Mg Tablet 20 MG PO DAILY for asthma for 7 Days, #7 TAB Time spent arranging discharge: 31-60 minutes ATTESTATION BY PHYSICIAN I have seen and examined the patient. I reviewed the documentation, medical decision making, and treatment plan as noted by the resident provider above. I agree with the findings and plan of care. Fernando Wise MD, ABHINAV MD Jun 19, 2025 11:30
--- NOTE | 2025-06-19 12:36 | PN ---
[facility] PROGRESS NOTE Date Patient Seen: Jun 19, 2025 Time of Visit: 12:32 Supervising Physician: [Dr. Sofie Dubois Primary Care Physician: [ ] Outpatient Specialists: [ ] Inpatient Consults: [ ] HANS PROBLEM LIST: Acute on chronic asthma exacerbation Acute cystitis PLAN SUMMARY: Supplemental oxygen as needed Wean off as tolerated Solu-Medrol 40 mg IV every 12 hours Transitioned to prednisone 40 mg daily x7 days upon discharge Montelukast 10 mg daily Continue doxycycline Pulmicort b.i.d. Outpatient follow up in Pulmonary Clinic 1-2 weeks post discharge 6 minute walk test for home O2 eval Patient may be discharged from pulmonary standpoint INTERVAL HISTORY: Ms. Dubois is a 35-year-old female who came to the emergency department with a chief complaint of shortness of breath. She has associated cough both of which started from last Monday and got exacerbated yesterday night for which she came to the ER. Patient has had previous episodes of asthma exacerbation with hospital admission. She only uses albuterol when she has asthma exacerbation which she said did not help this time. Patient does not have a PCP currently. Patient's lab showed WBC of 15.2, left shift neutrophils 89.5%, urinalysis positive for leukocyte esterase and urine WBCs in the range of 26-50. She was started on Zosyn. Chest x-ray showed no acute cardiopulmonary process. She was also tachycardic with her heart rate in 116. Patient continued with shortness on breath requiring 3 L nasal cannula and for this reason we are consulted. Patient is seen sitting up in bed currently on room air and denies dyspnea at rest. On exam noted patient continues with bilateral scattered wheezing. Patient reports she does not see any provider for asthma and has never been evaluated by race relations adviser. Patient admits she is always around lots of people who smoke in her in her home and her family/friends [employer]. Patient admits she spends time at bars where there is a lot of smoke inhaled. Patient admits her symptoms began soon after her attending on gathering and was around multiple smokers. Patient was advised to maintain distance from people smoking tobacco as well as bars. Patient had peak flow results of 150 mL which is extremely low for person her age. Recommend continue duo nebs as well as Pulmicort b.i.d.. Continue current antibiotic regimen. Continue high-dose steroids for a short course until wheezing resolves. Request a 6 minute walk test prior to discharge. Patient was advised to follow up in Pulmonary Clinic in 1-2 weeks post discharge. Patient reports she currently does not have insurance and given her financial status is quite difficult to follow up with specialists. We will continue to follow with you during her hospitalization. ABG results were noted. Patient was found with elevated CRP. We will continue steroids for now. Today patient seen sitting up in bed with no signs of acute distress. Patient remains on room air denies dyspnea. On exam noted wheezing has resolved bilaterally. Patient continued with high-dose steroids and CRP has decreased. If patient is going to be discharge recommend transitioning Solu-Medrol to prednisone 40 mg daily x7 days. Continue doxycycline x5 days. Patient advised to follow up in the Pulmonary Clinic for PFTs in 1-2 weeks upon discharge. Patient verbalized understanding. Patient may be discharged home from pulmonary standpoint. REVIEW OF SYSTEMS: 12 point ROS reviewed with patient. Pertinent positives mentioned above. Otherwise negative. PHYSICAL EXAM: GENERAL: alert, weak, awake oriented x 3 HEENT: EOMI, Sclera non icteric, moist mucosa NECK: Supple, no JVD, trachea midline LUNGS: Clear breath sounds bilaterally. No wheezes HEART: Regular rate and rhythm. Normal S1 and S2, without murmurs ABD: Abdomen soft, nontender. Bowel sounds present EXT: No clubbing cyanosis or edema NEURO: Alert and oriented to person, follows commands Vital Signs (last 8hr) Date Time Temp Pulse Resp B/P (MAP) Pulse Ox O2 Delivery O2 Flow Rate FiO2 06/19/25 11:27 91 20 06/19/25 11:26 91 18 N/A Room Air 21 06/19/25 09:29 86 18 21 101 18 21 06/19/25 08:00 97.9 63 18 111/70 97 Room Air 06/19/25 06:28 79 18 N/A Room Air 06/19/25 06:28 79 20 LABS: Hematology Labs: Test 06/19/25 04:49 Range/Units White Blood Count 14.4 H 4.8-10.8 K/uL Red Blood Count 4.05 4.00-5.50 MIL/uL Hemoglobin 14.1 12.0-16.0 g/dL Hematocrit 38.1 36-48 % Mean Corpuscular Volume 94.1 79-99 fL Mean Corpuscular Hemoglobin 34.8 H 27.0-33.0 pg Mean Corpuscular Hemoglobin Concent 37.0 H 32.0-36.0 g/dL Red Cell Distribution Width 12.1 11.0-15.5 % Platelet Count 330 130-400 K/uL Mean Platelet Volume 10.7 H 7.5-10.5 fL Nucleated Red Blood Cells 0.0 0.0-0.19 % Red Blood Cell Morphology ANISO 1+ Chemistry Labs: Test 06/19/25 04:49 Range/Units Sodium Level 137 136-145 mmol/L Potassium Level 4.1 3.5-5.1 mmol/L Chloride Level 106 101-111 mmol/L Carbon Dioxide Level 22 21-32 mmol/L Blood Urea Nitrogen 7 7-18 mg/dL Creatinine 0.6 0.5-1.0 mg/dL Glomerular Filtration Rate Calc 121 >90 mL/min Random Glucose 141 H 70-105 mg/dL Total Calcium 8.8 8.5-10.1 mg/dL C-Reactive Protein, Quantitative 5.40 H 0.5-3.0 mg/L DIAGNOSTICS / RADIOLOGY RESULTS: [ ] PLAN NEURO: Minimize central acting medications as possible. Maintain fall precautions, adequate lighting during the day PULMONARY: Supplemental 02 as needed. Maintain aspiration precautions at all times CARDIOVASCULAR: Follow hemodynamics. Vital signs per facility protocol GI & NUTRITION: Continue with nutritional support. Continue stool softeners and laxatives as needed. KIDNEYS & ELECTROLYTES: Strict monitoring of intake, output and overall fluid balance. Avoid nephrotoxic medications to the extent possible. Medications to be dosed according to renal function. Monitor electrolytes and replace as needed ENDOCRINE: Maintain blood glucose between 100-180 at all times. Hypoglycemia protocol in place INFECTIOUS DISEASE: Trend temperature, WBC and procalcitonin level Follow cultures, deescalate antibiotics as soon as possible. Panculture if new onset fever ONCOLOGY/HEMATOLOGY/COAGULATION: Monitor for s/s of bleeding Monitor hemoglobin, coagulation studies as needed SKIN: Pressure ulcer prevention per facility protocol Specialty mattress ORTHO/REHAB: Continue PT/OT Prophylaxis: Continue GI and DVT prophylaxis Code Status: Full Resuscitation Disposition: As per attending ATTESTATION BY PHYSICIAN The patient has been seen and evaluated, the case has been discussed with the BILLET INSPECTOR, I agree with the clinical findings and plan of care. Vasyl Dubois MD, ECTOR N BILLET INSPECTOR Jun 19, 2025 12:36
--- NOTE | 2025-06-19 19:59 | NUR ---
DISCHARGE PT PIV DC'D PT VERBALIZED UNDERSTANDING OF DISCHARGE INSTRUCTIONS PT HAD NO FURTHER QUESTIONS AT TIME OF DISCHARGE FAMILY AT BEDSIDE. FAMILY GATHERED AND TOOK ALL BELONGINGS.
== END 2025-06-19 18:40 | disposition home or self-care (01) | DRG 189 ==
LOC: EDH 22:47 → EDHIP 22:48 → 4BH 06-16 03:42
PROVIDERS: ADMIT Internal Medicine; ATTEND Internal Medicine
DX: J96.01 Acute respiratory failure with hypoxia (principal); J18.9 Pneumonia, unspecified organism; J45.901 Unspecified asthma with (acute) exacerbation; N30.00 Acute cystitis without hematuria; R65.10 Systemic inflammatory response syndrome (SIRS) of non-infectious origin without acute organ dysfunction; E11.9 Type 2 diabetes mellitus without complications; Z51.5 Encounter for palliative care; Z59.71 Insufficient health insurance coverage; Z80.3 Family history of malignant neoplasm of breast; Z82.0 Family history of epilepsy and other diseases of the nervous system; Z82.3 Family history of stroke; Z82.49 Family history of ischemic heart disease and other diseases of the circulatory system; Z82.5 Family history of asthma and other chronic lower respiratory diseases; Z83.3 Family history of diabetes mellitus
CPT/HCPCS: 36415; 36600; 71045; 71250; 80048; 80053; 81001; 81025; 82803; 83605; 83735; 84100; 84145; 85025; 85027; 86140; 87040; 87071; 87086; 87205; 87426; 87804; 87880; 94640; 94664; 94760; 99285; G0378; J0696; J1650; J2543; J2919; J3490